=== PATIENT | male | born 1955 | race Caucasian/White ===

== ENCOUNTER 2017-07-05 21:54 | Inpatient (IN) | payer MEDICAID ==
[~2017-07-05] VITALS: Ht 182.9 cm; Wt 90.0 kg
[~2017-07-05 21:54] MED LIST: GABA-531 PO; METF500T4 PO
[2017-07-05 22:59] LABS: BASOPHILS % (AUTO) 0.3 % (0.0-2.0); EOSINOPHILS % (AUTO) 0.9 % (1.0-6.0); HEMATOCRIT 37.6 % (41-53); HEMOGLOBIN 12.4 g/dL (13.5-17.5); LYMPHOCYTES % (AUTO) 24.8 % (22.0-44.0); MEAN CORPUSCULAR HEMOGLOBIN 28.4 pg (26.0-34.0); MEAN CORPUSCULAR VOLUME 86 fL (80-100); MONOCYTES # (AUTO) 0.7 K/uL (0.1-1.0); MONOCYTES % (AUTO) 8.2 % (2.0-9.0); NEUTROPHILS # (AUTO) 5.4 K/uL (1.8-7.7); NEUTROPHILS % (AUTO) 65.8 % (40.0-70.0); PLATELET COUNT (AUTO) 369 K/uL (150-450); RED BLOOD CELL COUNT(AUTO) 4.38 MIL/uL (4.50-5.90); WHITE BLOOD COUNT (AUTO) 8.2 K/uL (4.5-11.0)
[2017-07-05 23:06] LABS: ANION GAP 9 mmol/L (8-16); CALCIUM, TOTAL 8.7 mg/dL (8.8-10.5); CARBON DIOXIDE 28 mmol/L (22-29); CHLORIDE 101 mmol/L (98-107); CREATININE 0.66 mg/dL (0.60-1.30); GLOMERULAR FILTR. RATE CALC > 60 mL/min (>60); POTASSIUM 3.6 mmol/L (3.5-5.1); SODIUM SERUM 138 mmol/L (136-145); UREA NITROGEN, BLOOD 20 mg/dL (7-18)
[2017-07-05 23:09] LABS: AMMONIA < 10 umol/L (11-32); TROPONIN I < 0.02 ng/mL (0.00-0.05)
[2017-07-05 23:10] LABS: ALANINE AMINOTRANSFERASE 33 U/L (12-78); ALBUMIN 3.2 g/dL (3.4-5.0); ASPARTATE AMINOTRANSFERASE 34 U/L (15-37); BILIRUBIN,TOTAL 0.2 mg/dL (0.1-1.0); TOTAL PROTEIN, SERUM 7.5 g/dL (6.4-8.2)
[2017-07-05 23:16] LABS: RBC MORPHOLOGY COMMENT ABNORMAL RBC MORPH
[2017-07-06] VITALS (11 sets, daily range): BP systolic 120–153; BP diastolic 67–94
[2017-07-06] MEDS ORDERED: CEPHALEXIN MONOHYDRATE 500 MG CAPSULE PO ONE ×2 (01:30→09:00)
[2017-07-06] MEDS ORDERED: HALOPERIDOL 5 MG TABLET PO PRN (01:45)
[2017-07-06] MEDS ORDERED: ZOLPIDEM TARTRATE 10 MG TABLET PO PRN (01:45)
[2017-07-06] MEDS: LORazepam 2 MG TABLET PO PRN ×2 (01:51→09:56)
[2017-07-06] MEDS ORDERED: INFLUENZA VIRUS VACCINE QVS 2017-18 (3YR+)/PF 60 MCG/0.5 ML SYRINGE IM ONE (03:00)
[2017-07-06] MEDS ORDERED: ACETAMINOPHEN 325 MG TABLET PO PRN (07:45)
[2017-07-06] MEDS ORDERED: GuaiFENesin/D-METHORPHAN [SUGAR-FREE] 200-20MG/10 ML SYRUP UDCUP PO PRN (08:45)
[2017-07-06] MEDS ORDERED: CYANOCOBALAMIN 1,000 MCG/ML VIAL IM ONE (08:45)
[2017-07-06] MEDS: MULTIVITAMINS WITH MINERALS, THERAPEUTIC TABLET PO SCH (09:53)
[2017-07-06] MEDS: CEPHALEXIN MONOHYDRATE 500 MG CAPSULE PO SCH ×4 (09:53→21:25)
[2017-07-06] MEDS: THIAMINE HCL 100 MG TABLET PO SCH ×2 (09:53→17:03)
[2017-07-06] MEDS: FOLIC ACID 1 MG TABLET PO SCH (09:53)
[2017-07-06 11:01] LABS: APPEARANCE,URINE CLEAR (CLEAR); GLUCOSE, URINE (UA) NEGATIVE (NEGATIVE); KETONES,URINE NEGATIVE (NEGATIVE); LEUKOCYTE ESTERASE ,URINE NEGATIVE (NEGATIVE); OCCULT BLOOD,URINE NEGATIVE (NEGATIVE); PH,URINE 5.5 (5.0-8.0); PROTEIN,URINE TRACE (NEGATIVE)
[2017-07-06 11:02] LABS: ADD UA MICROSCOPIC NO
[2017-07-06] MEDS ORDERED: IBUPROFEN 400 MG TABLET PO PRN (11:30)
[2017-07-06] MEDS: LOPERAMIDE HCL 2 MG CAPSULE PO PRN (15:38)
[2017-07-07] VITALS (11 sets, daily range): BP systolic 120–162; BP diastolic 75–94
[2017-07-07] MEDS: LOPERAMIDE HCL 2 MG CAPSULE PO PRN (03:36)
[2017-07-07] MEDS: IBUPROFEN 400 MG TABLET PO PRN ×2 (03:36→18:50)
[2017-07-07] MEDS ORDERED: LORazepam 2 MG TABLET PO PRN (07:00)
[2017-07-07 07:06] LABS: CHOL/HDL RATIO 2.9 (4.2-7.3)
[2017-07-07] MEDS: MULTIVITAMINS WITH MINERALS, THERAPEUTIC TABLET PO SCH (08:46)
[2017-07-07] MEDS: CEPHALEXIN MONOHYDRATE 500 MG CAPSULE PO SCH ×4 (08:46→21:02)
[2017-07-07] MEDS: THIAMINE HCL 100 MG TABLET PO SCH ×2 (08:46→16:46)
[2017-07-07] MEDS: FOLIC ACID 1 MG TABLET PO SCH (08:47)
[2017-07-07] MEDS: LORazepam 2 MG TABLET PO SCH ×4 (08:47→21:01)
[2017-07-07] MEDS: ACETAMINOPHEN 325 MG TABLET PO PRN (08:51)
[2017-07-08 03:47] VITALS: BP 142/87
[2017-07-08] MEDS: IBUPROFEN 400 MG TABLET PO PRN ×2 (03:53→16:13)
[2017-07-08] MEDS: LOPERAMIDE HCL 2 MG CAPSULE PO PRN (06:00)
[2017-07-08 08:00] VITALS: BP 143/96
[2017-07-08] MEDS: LORazepam 2 MG TABLET PO SCH ×4 (08:09→21:24)
[2017-07-08] MEDS: MULTIVITAMINS WITH MINERALS, THERAPEUTIC TABLET PO SCH (08:09)
[2017-07-08] MEDS: FOLIC ACID 1 MG TABLET PO SCH (08:09)
[2017-07-08] MEDS: THIAMINE HCL 100 MG TABLET PO SCH ×2 (08:09→16:14)
[2017-07-08] MEDS: CEPHALEXIN MONOHYDRATE 500 MG CAPSULE PO SCH ×4 (08:09→21:24)
[2017-07-08] MEDS: ACETAMINOPHEN 325 MG TABLET PO PRN (08:10)
[2017-07-08] MEDS: SERTRALINE HCL 50 MG TABLET PO SCH (12:29)
[2017-07-08 16:10] VITALS: BP 152/86
[2017-07-08 16:34] VITALS: BP 150/87
[2017-07-09 04:00] VITALS: BP 132/87
[2017-07-09] MEDS: IBUPROFEN 400 MG TABLET PO PRN (04:38)
[2017-07-09] MEDS: ACETAMINOPHEN 325 MG TABLET PO PRN ×2 (05:41→09:50)
[2017-07-09] MEDS ORDERED: LORazepam 1 MG TABLET PO PRN (07:00)
[2017-07-09] MEDS: CEPHALEXIN MONOHYDRATE 500 MG CAPSULE PO SCH ×4 (08:53→21:13)
[2017-07-09] MEDS: LORazepam 1 MG TABLET PO SCH ×4 (08:53→21:13)
[2017-07-09] MEDS: SERTRALINE HCL 50 MG TABLET PO SCH (08:53)
[2017-07-09] MEDS: MULTIVITAMINS WITH MINERALS, THERAPEUTIC TABLET PO SCH (08:53)
[2017-07-09] MEDS: THIAMINE HCL 100 MG TABLET PO SCH ×2 (08:53→16:28)
[2017-07-09] MEDS: FOLIC ACID 1 MG TABLET PO SCH (08:53)
[2017-07-09 09:30] VITALS: BP 155/99
[2017-07-09] MEDS: LOPERAMIDE HCL 2 MG CAPSULE PO PRN (09:50)
[2017-07-09 16:30] VITALS: BP 131/91
[2017-07-10] MEDS: IBUPROFEN 400 MG TABLET PO PRN ×2 (01:20→12:50)
[2017-07-10 01:27] VITALS: BP 147/90
[2017-07-10 01:29] VITALS: BP 147/90
[2017-07-10 07:00] VITALS: BP 149/96
[2017-07-10] MEDS: ACETAMINOPHEN 325 MG TABLET PO PRN ×2 (07:04→16:40)
[2017-07-10 08:04] VITALS: BP 149/88
[2017-07-10] MEDS: MULTIVITAMINS WITH MINERALS, THERAPEUTIC TABLET PO SCH (09:00)
[2017-07-10] MEDS: CEPHALEXIN MONOHYDRATE 500 MG CAPSULE PO SCH ×4 (09:00→20:13)
[2017-07-10] MEDS: SERTRALINE HCL 50 MG TABLET PO SCH (09:00)
[2017-07-10] MEDS: LORazepam 1 MG TABLET PO PRN ×2 (09:00→14:39)
[2017-07-10] MEDS: LOPERAMIDE HCL 2 MG CAPSULE PO PRN (09:00)
[2017-07-10] MEDS: THIAMINE HCL 100 MG TABLET PO SCH ×2 (09:00→16:40)
[2017-07-10] MEDS: FOLIC ACID 1 MG TABLET PO SCH (09:00)
[2017-07-10 16:42] VITALS: BP 136/71
[2017-07-11] VITALS: BP 146/80
[2017-07-11] MEDS: IBUPROFEN 400 MG TABLET PO PRN ×2 (00:07→10:07)
[2017-07-11 05:30] VITALS: BP 145/115
[2017-07-11] MEDS: ACETAMINOPHEN 325 MG TABLET PO PRN (05:39)
[2017-07-11] MEDS: LORazepam 1 MG TABLET PO PRN (05:39)
[2017-07-11] MEDS ORDERED: AmLODIPine BESYLATE 5 MG TABLET PO SCH (09:00)
[2017-07-11] MEDS: MULTIVITAMINS WITH MINERALS, THERAPEUTIC TABLET PO SCH (09:11)
[2017-07-11] MEDS: FOLIC ACID 1 MG TABLET PO SCH (09:11)
[2017-07-11] MEDS: THIAMINE HCL 100 MG TABLET PO SCH (09:11)
[2017-07-11] MEDS: SERTRALINE HCL 50 MG TABLET PO SCH (09:11)
[2017-07-11] MEDS: CEPHALEXIN MONOHYDRATE 500 MG CAPSULE PO SCH ×2 (09:11→12:49)
[2017-07-11 10:07] VITALS: BP 146/93
[2017-07-11] MEDS ORDERED: SERT50TA12 PO (10:07)
[2017-07-11] MEDS ORDERED: FOLI1 PO (10:08)
[2017-07-11] MEDS ORDERED: AMLO-511 PO (10:08)
[2017-07-11] MEDS ORDERED: MULT-723 PO (10:11)
[2017-07-11] MEDS ORDERED: THIA100 PO (10:12)
[2017-07-11] MEDS ORDERED: CEPH500 PO (10:12)
[2017-07-11] MEDS: LOPERAMIDE HCL 2 MG CAPSULE PO PRN (10:48)
[2017-07-11 11:47] VITALS: BP 140/88
== END 2017-07-11 13:40 | disposition home or self-care (01) | DRG 751 ==
LOC: EDBD 21:56 → EMS 21:56 → 3EI 07-06 01:00
PROC: HZ2ZZZZ Detoxification Services for Substance Abuse Treatment (ICD-10-PCS; principal; 2017-07-07)
DX: F33.2 Major depressive disorder, recurrent severe without psychotic features (principal); R45.851 Suicidal ideations; L03.116 Cellulitis of left lower limb; E88.09 Other disorders of plasma-protein metabolism, not elsewhere classified; D64.9 Anemia, unspecified; T14.8XXA Other injury of unspecified body region, initial encounter; F10.229 Alcohol dependence with intoxication, unspecified; Y90.6 Blood alcohol level of 120-199 mg/100 ml; X58.XXXA Exposure to other specified factors, initial encounter; F19.10 Other psychoactive substance abuse, uncomplicated; Z59.0 Homelessness; Y92.89 Other specified places as the place of occurrence of the external cause; Y93.89 Activity, other specified
CPT/HCPCS: 80307; 99285; G0480; J3420

== ENCOUNTER 2017-12-03 20:25 | Emergency (ER) | payer MEDICAID, OTHER ==
[~2017-12-03] VITALS: Ht 182.9 cm; Wt 100.0 kg
[~2017-12-03 20:25] MED LIST changes: +AMLO-511 PO; +CEPH500 PO; +FOLI1 PO; +MULT-723 PO; +SERT50TA12 PO; +THIA100 PO
[2017-12-03 20:29] VITALS: BP 150/85
[2017-12-03] MEDS ORDERED: MIRALAX PO (20:40)
[2017-12-03] MEDS ORDERED: METO25 PO (20:40)
[2017-12-03] MEDS ORDERED: HYDR25TA PO (20:40)
[2017-12-03] MEDS ORDERED: LIDO700A30 TP (20:40)
[2017-12-03] MEDS ORDERED: VORT20TA PO (20:40)
[2017-12-03] MEDS ORDERED: TAMS0.4C32 PO (20:40)
[2017-12-03] MEDS ORDERED: DOCU250C91 PO (20:40)
[2017-12-03] MEDS ORDERED: OS500 PO (20:40)
[2017-12-03] MEDS ORDERED: ENAL20 PO (20:40)
[2017-12-03] MEDS ORDERED: HYDR-309 PO (20:40)
[2017-12-03] MEDS ORDERED: SENN-175 PO (20:40)
== END 2017-12-03 21:24 | disposition left against medical advice (07) ==
LOC: EMS 20:25
DX: S16.1XXA Strain of muscle, fascia and tendon at neck level, initial encounter (principal); R10.31 Right lower quadrant pain; E11.9 Type 2 diabetes mellitus without complications; M79.641 Pain in right hand; F32.9 Major depressive disorder, single episode, unspecified; I10 Essential (primary) hypertension; Z59.0 Homelessness; Z79.899 Other long term (current) drug therapy; W18.39XA Other fall on same level, initial encounter; Y93.89 Activity, other specified; Y92.89 Other specified places as the place of occurrence of the external cause; Y99.8 Other external cause status
CPT/HCPCS: 99283

== ENCOUNTER 2017-12-04 09:13 | Emergency (ER) | payer OTHER ==
[~2017-12-04] VITALS: Ht 185.4 cm; Wt 100.0 kg
[~2017-12-04 09:13] MED LIST changes: -AMLO-511 PO; +DOCU250C91 PO; +ENAL20 PO; -FOLI1 PO; +HYDR-309 PO; +HYDR25TA PO; +LIDO700A30 TP; +METO25 PO; +MIRALAX PO; +OS500 PO; +SENN-175 PO; +TAMS0.4C32 PO; +VORT20TA PO
[2017-12-04] MEDS ORDERED: SODIUM CHLORIDE 0.9% 1,000 ML IV ONE (12:30)
[2017-12-04] MEDS ORDERED: HYDROCODONE/ACETAMINOPHEN 5-325 MG TABLET PO ONE (12:30)
[2017-12-04 12:48] LABS: BASOPHILS % (AUTO) 0.5 % (0.0-2.0); HEMATOCRIT 31.6 % (41-53); HEMOGLOBIN 10.3 g/dL (13.5-17.5); LYMPHOCYTES # (AUTO) 2.3 K/uL (1.0-4.8); MEAN CORPUSCULAR HEMOGLOBIN 26.2 pg (26.0-34.0); MEAN CORPUSCULAR HGB CONC 32.8 G/dL (31.0-37.0); MEAN CORPUSCULAR VOLUME 80 fL (80-100); MONOCYTES # (AUTO) 0.8 K/uL (0.1-1.0); MONOCYTES % (AUTO) 8.7 % (2.0-9.0); NEUTROPHILS % (AUTO) 64.8 % (40.0-70.0); PLATELET COUNT (AUTO) 410 K/uL (150-450); RED BLOOD CELL COUNT(AUTO) 3.95 MIL/uL (4.50-5.90); RED CELL DISTRIBUTION WIDTH 18.3 % (11.5-14.5)
[2017-12-04 12:50] VITALS: BP 128/89
[2017-12-04 12:58] LABS: ANION GAP 10 mmol/L (8-16); CALCIUM, TOTAL 8.6 mg/dL (8.8-10.5); CARBON DIOXIDE 27 mmol/L (22-29); CHLORIDE 96 mmol/L (98-107); CREATININE 0.65 mg/dL (0.60-1.30); GLOMERULAR FILTR. RATE CALC > 60 mL/min (>60); GLUCOSE,RANDOM 105 mg/dL (70-110); POTASSIUM 3.6 mmol/L (3.5-5.1); SODIUM SERUM 133 mmol/L (136-145); UREA NITROGEN, BLOOD 14 mg/dL (7-18)
[2017-12-04 13:11] LABS: ALANINE AMINOTRANSFERASE 32 U/L (12-78); ALBUMIN 2.9 g/dL (3.4-5.0); ALKALINE PHOSPHATASE 106 U/L (46-116); ASPARTATE AMINOTRANSFERASE 25 U/L (15-37); BILIRUBIN,TOTAL 0.2 mg/dL (0.1-1.0); TOTAL PROTEIN, SERUM 8.1 g/dL (6.4-8.2)
== END 2017-12-04 13:26 | disposition home or self-care (01) ==
LOC: EMS 09:15
DX: R10.9 Unspecified abdominal pain (principal); E11.9 Type 2 diabetes mellitus without complications; I10 Essential (primary) hypertension; Z59.0 Homelessness; Z98.890 Other specified postprocedural states
CPT/HCPCS: 36415; 80053; 85025; 99284; J7030

== ENCOUNTER 2018-07-23 12:41 | Emergency (ER) | payer OTHER ==
[~2018-07-23] VITALS: Ht 175.3 cm; Wt 90.9 kg
[~2018-07-23 12:41] MED LIST changes: +METF-960 PO; -METF500T4 PO; -SENN-175 PO; +SENN-176 PO; -THIA100 PO; +THIA100T67 PO
[2018-07-23 13:09] VITALS: BP 131/76
[2018-07-23 13:13] LABS: GLUCOSE,POINT OF CARE 74 MG/DL (70-110)
== END 2018-07-23 14:04 | disposition left against medical advice (07) ==
LOC: EMS 12:42
DX: F10.129 Alcohol abuse with intoxication, unspecified (principal); E11.9 Type 2 diabetes mellitus without complications; I10 Essential (primary) hypertension; Z59.0 Homelessness; Z79.84 Long term (current) use of oral hypoglycemic drugs

== ENCOUNTER 2019-03-14 15:35 | Emergency (ER) | payer OTHER ==
[~2019-03-14] VITALS: Ht 182.9 cm; Wt 106.6 kg
[2019-03-14 16:10] LABS: BASOPHILS % (AUTO) 0.7 % (0.0-2.0); HEMATOCRIT 39.6 % (41-53); HEMOGLOBIN 12.4 g/dL (13.5-17.5); LYMPHOCYTES # (AUTO) 2.8 K/uL (1.0-4.8); LYMPHOCYTES % (AUTO) 25.5 % (22.0-44.0); MEAN CORPUSCULAR HEMOGLOBIN 27.5 pg (26.0-34.0); MEAN CORPUSCULAR HGB CONC 31.3 G/dL (31.0-37.0); MEAN CORPUSCULAR VOLUME 88 fL (80-100); MONOCYTES # (AUTO) 1.1 K/uL (0.1-1.0); MONOCYTES % (AUTO) 10.1 % (2.0-9.0); NEUTROPHILS % (AUTO) 62.7 % (40.0-70.0); PLATELET COUNT (AUTO) 291 K/uL (150-450); RED BLOOD CELL COUNT(AUTO) 4.51 MIL/uL (4.50-5.90); RED CELL DISTRIBUTION WIDTH 22.7 % (11.5-14.5)
[2019-03-14 16:21] LABS: ANION GAP 11 mmol/L (8-16); CALCIUM, TOTAL 8.3 mg/dL (8.8-10.5); CARBON DIOXIDE 22 mmol/L (22-29); CHLORIDE 100 mmol/L (98-107); CREATININE 1.17 mg/dL (0.60-1.30); GLOMERULAR FILTR. RATE CALC > 60 mL/min (>60); GLUCOSE,RANDOM 109 mg/dL (70-110); POTASSIUM 4.3 mmol/L (3.5-5.1); SODIUM SERUM 133 mmol/L (136-145); UREA NITROGEN, BLOOD 26 mg/dL (7-18)
[2019-03-14 16:26] LABS: PROTHROMBIN TIME 10.7 SEC (9.4-11.6)
[2019-03-14 16:30] LABS: B-TYPE NATRIURETIC PEPTIDE 218 pg/mL (0-100)
[2019-03-14] MEDS ORDERED: SODIUM CHLORIDE 0.9% 1,000 ML IV ONE (16:30)
[2019-03-14] MEDS ORDERED: IOVERSOL 350 MG/ML 150 ML VIAL ONE (16:39)
[2019-03-14] MEDS ORDERED: SODIUM CHLORIDE 0.9% 0 ML ONE (16:39)
[2019-03-14 16:47] LABS: ALANINE AMINOTRANSFERASE 33 U/L (12-78); ALBUMIN 3.1 g/dL (3.4-5.0); ALKALINE PHOSPHATASE 75 U/L (46-116); ASPARTATE AMINOTRANSFERASE 23 U/L (15-37); BILIRUBIN,TOTAL 0.2 mg/dL (0.1-1.0); CREATINE KINASE, TOTAL ONLY 196 U/L (39-308); TOTAL PROTEIN, SERUM 6.7 g/dL (6.4-8.2)
[2019-03-14 17:25] VITALS: BP 102/65
== END 2019-03-14 17:40 | disposition left against medical advice (07) ==
LOC: EMS 15:38
DX: R07.9 Chest pain, unspecified (principal); R06.02 Shortness of breath; I48.91 Unspecified atrial fibrillation; E11.9 Type 2 diabetes mellitus without complications; I10 Essential (primary) hypertension; F17.210 Nicotine dependence, cigarettes, uncomplicated; Z59.0 Homelessness; Z79.84 Long term (current) use of oral hypoglycemic drugs
CPT/HCPCS: 71045; 80053; 82550; 83880; 84484; 85025; 85610; 85730; 93005; 99285; J7030; J7050

== ENCOUNTER 2019-03-15 03:27 | Emergency (ER) | payer OTHER ==
[~2019-03-15] VITALS: Ht 182.9 cm; Wt 102.3 kg
[2019-03-15] MEDS ORDERED: KETOROLAC TROMETHAMINE 30 MG/ML VIAL IVP ONE (04:00)
[2019-03-15] MEDS ORDERED: MORPHINE SULFATE 4 MG/ML SYRINGE IVP ONE (04:15)
[2019-03-15] MEDS ORDERED: ONDANSETRON HCL 4 MG/2 ML VIAL IVP ONE (04:15)
[2019-03-15 04:26] LABS: EOSINOPHILS % (AUTO) 0.7 % (1.0-6.0); HEMATOCRIT 41.5 % (41-53); LYMPHOCYTES # (AUTO) 2.6 K/uL (1.0-4.8); LYMPHOCYTES % (AUTO) 19.6 % (22.0-44.0); MEAN CORPUSCULAR HEMOGLOBIN 27.4 pg (26.0-34.0); MEAN CORPUSCULAR HGB CONC 31.5 G/dL (31.0-37.0); MEAN CORPUSCULAR VOLUME 87 fL (80-100); MONOCYTES # (AUTO) 1.1 K/uL (0.1-1.0); MONOCYTES % (AUTO) 8.4 % (2.0-9.0); NEUTROPHILS # (AUTO) 9.3 K/uL (1.8-7.7); NEUTROPHILS % (AUTO) 70.3 % (40.0-70.0); PLATELET COUNT (AUTO) 268 K/uL (150-450); RED BLOOD CELL COUNT(AUTO) 4.76 MIL/uL (4.50-5.90); RED CELL DISTRIBUTION WIDTH 22.6 % (11.5-14.5)
[2019-03-15 04:39] LABS: PROTHROMBIN TIME 10.5 SEC (9.4-11.6)
[2019-03-15 04:43] LABS: ANION GAP 8 mmol/L (8-16); CALCIUM, TOTAL 8.6 mg/dL (8.8-10.5); CARBON DIOXIDE 27 mmol/L (22-29); CHLORIDE 102 mmol/L (98-107); GLOMERULAR FILTR. RATE CALC > 60 mL/min (>60); GLUCOSE,RANDOM 102 mg/dL (70-110); POTASSIUM 5.1 mmol/L (3.5-5.1); SODIUM SERUM 137 mmol/L (136-145); UREA NITROGEN, BLOOD 25 mg/dL (7-18)
[2019-03-15 04:48] LABS: ALANINE AMINOTRANSFERASE 41 U/L (12-78); ALBUMIN 3.4 g/dL (3.4-5.0); ALKALINE PHOSPHATASE 88 U/L (46-116); ASPARTATE AMINOTRANSFERASE 29 U/L (15-37); BILIRUBIN,TOTAL 0.2 mg/dL (0.1-1.0); TOTAL PROTEIN, SERUM 7.2 g/dL (6.4-8.2)
[2019-03-15 05:17] LABS: APPEARANCE,URINE CLEAR (CLEAR); BILIRUBIN,URINE NEGATIVE (NEGATIVE); GLUCOSE, URINE (UA) NEGATIVE (NEGATIVE); KETONES,URINE NEGATIVE (NEGATIVE); LEUKOCYTE ESTERASE ,URINE NEGATIVE (NEGATIVE); NITRATE,URINE NEGATIVE (NEGATIVE); OCCULT BLOOD,URINE NEGATIVE (NEGATIVE); PROTEIN,URINE NEGATIVE (NEGATIVE); UROBILINOGEN,URINE 0.2 mg/dL (<=1.0)
[2019-03-15 06:32] VITALS: BP 124/85
[2019-03-15 06:33] LABS: AMPHET/METH SCREEN,URINE NEGATIVE (NEGATIVE); BARBITURATE SCREEN, URINE NEGATIVE (NEGATIVE); BENZODIAZEPINES SCREEN,URINE NEGATIVE (NEGATIVE); CANNABINOID SCREEN,URINE NEGATIVE (NEGATIVE); COCAINE SCREEN,URINE NEGATIVE (NEGATIVE); METHADONE SCREEN, URINE NEGATIVE (NEGATIVE); OPIATE SCREEN,URINE NEGATIVE (NEGATIVE)
[2019-03-15 06:37] LABS: PHENCYCLIDINE SCREEN,URINE NEGATIVE (NEGATIVE)
== END 2019-03-15 06:33 | disposition home or self-care (01) ==
LOC: EMS 03:29
DX: M54.6 Pain in thoracic spine (principal); M54.2 Cervicalgia; M54.5 Low back pain; I48.91 Unspecified atrial fibrillation; E11.9 Type 2 diabetes mellitus without complications; I10 Essential (primary) hypertension; F17.210 Nicotine dependence, cigarettes, uncomplicated; Z59.0 Homelessness; Z79.84 Long term (current) use of oral hypoglycemic drugs
CPT/HCPCS: 36415; 70450; 72125; 72128; 72131; 72192; 80053; 80307; 81003; 85025; 85610; 85730; 96374; 96375; 99284; J1885; J2270; J2405; 51701

== ENCOUNTER 2019-03-30 02:00 | Emergency (ER) | payer OTHER ==
[~2019-03-30] VITALS: Ht 188 cm; Wt 102.3 kg
[2019-03-30 03:00] VITALS: BP 115/60
[2019-03-30 03:15] LABS: BASOPHILS % (AUTO) 0.7 % (0.0-2.0); EOSINOPHILS % (AUTO) 1.8 % (1.0-6.0); HEMATOCRIT 35.3 % (41-53); HEMOGLOBIN 11.1 g/dL (13.5-17.5); LYMPHOCYTES # (AUTO) 1.7 K/uL (1.0-4.8); LYMPHOCYTES % (AUTO) 21.2 % (22.0-44.0); MEAN CORPUSCULAR HEMOGLOBIN 27.3 pg (26.0-34.0); MEAN CORPUSCULAR HGB CONC 31.6 G/dL (31.0-37.0); MEAN CORPUSCULAR VOLUME 87 fL (80-100); MONOCYTES # (AUTO) 0.8 K/uL (0.1-1.0); MONOCYTES % (AUTO) 9.9 % (2.0-9.0); NEUTROPHILS # (AUTO) 5.3 K/uL (1.8-7.7); NEUTROPHILS % (AUTO) 66.4 % (40.0-70.0); PLATELET COUNT (AUTO) 239 K/uL (150-450); RED BLOOD CELL COUNT(AUTO) 4.08 MIL/uL (4.50-5.90); RED CELL DISTRIBUTION WIDTH 21.9 % (11.5-14.5)
[2019-03-30 03:24] LABS: ANION GAP 14 mmol/L (8-16); CALCIUM, TOTAL 8.9 mg/dL (8.8-10.5); CARBON DIOXIDE 25 mmol/L (22-29); CHLORIDE 103 mmol/L (98-107); CREATININE 0.83 mg/dL (0.60-1.30); GLOMERULAR FILTR. RATE CALC > 60 mL/min (>60); GLUCOSE,RANDOM 95 mg/dL (70-110); POTASSIUM 3.9 mmol/L (3.5-5.1); SODIUM SERUM 142 mmol/L (136-145); UREA NITROGEN, BLOOD 15 mg/dL (7-18)
[2019-03-30 03:30] LABS: ALANINE AMINOTRANSFERASE 34 U/L (12-78); ALBUMIN 3.6 g/dL (3.4-5.0); ALKALINE PHOSPHATASE 78 U/L (46-116); ASPARTATE AMINOTRANSFERASE 64 U/L (15-37); BILIRUBIN,TOTAL 0.7 mg/dL (0.1-1.0); TOTAL PROTEIN, SERUM 7.1 g/dL (6.4-8.2)
== END 2019-03-30 06:35 | disposition home or self-care (01) ==
LOC: EMS 02:02
DX: R07.9 Chest pain, unspecified (principal); M79.604 Pain in right leg; M79.605 Pain in left leg; F17.210 Nicotine dependence, cigarettes, uncomplicated; I48.91 Unspecified atrial fibrillation; E11.9 Type 2 diabetes mellitus without complications; I10 Essential (primary) hypertension; Z59.0 Homelessness
CPT/HCPCS: 93005; 99406

== ENCOUNTER 2019-10-15 01:37 | Inpatient (IN) | payer MEDICAID, OTHER ==
[2019-10-15] VITALS (7 sets, daily range): BP systolic 136–163; BP diastolic 56–97
[~2019-10-15] VITALS: Ht 177.8 cm; Wt 108.6 kg
[2019-10-15] MEDS ORDERED: HALOPERIDOL LACTATE 5 MG/ML VIAL IM ONE (02:15)
[2019-10-15] MEDS ORDERED: LORazepam 2 MG/ML VIAL IM ONE (02:15)
[2019-10-15 02:41] LABS: BASOPHILS % (AUTO) 0.2 % (0.0-2.0); EOSINOPHILS % (AUTO) 1.7 % (1.0-6.0); HEMATOCRIT 47.3 % (41-53); HEMOGLOBIN 15.3 g/dL (13.5-17.5); LYMPHOCYTES # (AUTO) 2.1 K/uL (1.0-4.8); LYMPHOCYTES % (AUTO) 37.5 % (22.0-44.0); MEAN CORPUSCULAR HEMOGLOBIN 28.8 pg (26.0-34.0); MEAN CORPUSCULAR HGB CONC 32.4 G/dL (31.0-37.0); MEAN CORPUSCULAR VOLUME 89 fL (80-100); MONOCYTES # (AUTO) 0.5 K/uL (0.1-1.0); MONOCYTES % (AUTO) 8.1 % (2.0-9.0); NEUTROPHILS % (AUTO) 52.5 % (40.0-70.0); PLATELET COUNT (AUTO) 250 K/uL (150-450); RED BLOOD CELL COUNT(AUTO) 5.32 MIL/uL (4.50-5.90); RED CELL DISTRIBUTION WIDTH 17.9 % (11.5-14.5)
[2019-10-15 02:43] LABS: ANION GAP 5 mmol/L (8-16); CALCIUM, TOTAL 8.8 mg/dL (8.8-10.5); CARBON DIOXIDE 32 mmol/L (22-29); CHLORIDE 101 mmol/L (98-107); CREATININE 0.75 mg/dL (0.60-1.30); GLOMERULAR FILTR. RATE CALC > 60 mL/min (>60); GLUCOSE,RANDOM 100 mg/dL (70-110); POTASSIUM 3.9 mmol/L (3.5-5.1); SODIUM SERUM 138 mmol/L (136-145); UREA NITROGEN, BLOOD 9 mg/dL (7-18)
[2019-10-15 02:48] LABS: ALANINE AMINOTRANSFERASE 55 U/L (12-78); ALBUMIN 4.1 g/dL (3.4-5.0); ALKALINE PHOSPHATASE 114 U/L (46-116); ASPARTATE AMINOTRANSFERASE 55 U/L (15-37); BILIRUBIN,TOTAL 0.3 mg/dL (0.1-1.0); TOTAL PROTEIN, SERUM 8.2 g/dL (6.4-8.2)
[2019-10-15 02:51] LABS: AMPHET/METH SCREEN,URINE NEGATIVE (NEGATIVE); BARBITURATE SCREEN, URINE NEGATIVE (NEGATIVE); BENZODIAZEPINES SCREEN,URINE NEGATIVE (NEGATIVE); CANNABINOID SCREEN,URINE NEGATIVE (NEGATIVE); COCAINE SCREEN,URINE NEGATIVE (NEGATIVE); METHADONE SCREEN, URINE NEGATIVE (NEGATIVE); OPIATE SCREEN,URINE NEGATIVE (NEGATIVE)
[2019-10-15 02:52] LABS: PHENCYCLIDINE SCREEN,URINE NEGATIVE (NEGATIVE)
[2019-10-15] MEDS ORDERED: LORazepam 2 MG TABLET PO PRN (03:00)
[2019-10-15] MEDS ORDERED: INFLUENZA VIRUS VACCINE QVS 2019-20 (3YR+)/PF 60 MCG/0.5 ML SYRINGE IM ONE (05:30)
[2019-10-15] MEDS ORDERED: PNEUMOCOCCAL VACCINE POLYVALENT 0.5 ML VIAL [PPSV23] IM ONE (05:30)
[2019-10-15] MEDS ORDERED: AmLODIPine BESYLATE 5 MG TABLET PO ONE (06:15)
[2019-10-15] MEDS ORDERED: LOPERAMIDE HCL 2 MG CAPSULE PO PRN (13:00)
[2019-10-15] MEDS ORDERED: MAGNESIUM HYDROXIDE SUSPENSION 30 ML UDCUP PO PRN (13:00)
[2019-10-15] MEDS ORDERED: CloNIDine HCL 0.1 MG TABLET PO PRN (13:00)
[2019-10-15] MEDS ORDERED: MAG HYDROX/AL HYDROX/SIMETH ES 30 ML SUSPENSION UDCUP PO PRN (13:00)
[2019-10-15] MEDS ORDERED: PETROLATUM,WHITE 28 GM JELLY TP PRN (13:00)
[2019-10-15] MEDS ORDERED: ONDANSETRON HCL 4 MG TABLET PO PRN (13:00)
[2019-10-15] MEDS ORDERED: NICOTINE 14 MG/24 HOUR PATCH TD PRN (13:00)
[2019-10-15] MEDS ORDERED: DOCUSATE SODIUM 100 MG CAPSULE PO PRN (13:00)
[2019-10-15] MEDS ORDERED: ALBUTEROL SULFATE HFA 90 MCG/PUFF 8 GM INHALER IH PRN (13:00)
[2019-10-15] MEDS ORDERED: GuaiFENesin/D-METHORPHAN [SUGAR-FREE] 200-20MG/10 ML SYRUP UDCUP PO PRN (13:00)
[2019-10-15] MEDS ORDERED: CYANOCOBALAMIN 1,000 MCG/ML VIAL IM ONE (14:15)
[2019-10-15] MEDS: MULTIVITAMINS WITH MINERALS, THERAPEUTIC TABLET PO SCH (14:22)
[2019-10-15] MEDS: FOLIC ACID 1 MG TABLET PO SCH (14:22)
[2019-10-15] MEDS: DIAZEPAM 10 MG TABLET PO PRN ×2 (14:22→22:27)
[2019-10-15] MEDS: THIAMINE HCL 100 MG TABLET PO SCH (16:31)
[2019-10-16 07:00] LABS: HEMOGLOBIN A1C 5.4 % (3.8-5.6)
[2019-10-16] MEDS ORDERED: DIAZEPAM 10 MG TABLET PO PRN (07:00)
[2019-10-16 07:09] LABS: CHOL/HDL RATIO 2.8 (4.2-7.3)
[2019-10-16] MEDS: DIAZEPAM 10 MG TABLET PO SCH ×4 (07:40→20:36)
[2019-10-16] MEDS: AmLODIPine BESYLATE 5 MG TABLET PO SCH (07:40)
[2019-10-16] MEDS: MULTIVITAMINS WITH MINERALS, THERAPEUTIC TABLET PO SCH (07:40)
[2019-10-16] MEDS: THIAMINE HCL 100 MG TABLET PO SCH ×2 (07:40→16:25)
[2019-10-16] MEDS: FOLIC ACID 1 MG TABLET PO SCH (07:41)
[2019-10-16 08:40] VITALS: BP 162/100
[2019-10-16 08:41] VITALS: BP 160/87
[2019-10-16 10:47] VITALS: BP 164/101
[2019-10-16] MEDS: IBUPROFEN 400 MG TABLET PO PRN ×2 (14:09→23:16)
[2019-10-16 14:15] VITALS: BP 162/75
[2019-10-16 16:30] VITALS: BP 146/87
[2019-10-16] MEDS: ACETAMINOPHEN 325 MG TABLET PO PRN (18:05)
[2019-10-17 08:20] VITALS: BP 136/80
[2019-10-17] MEDS: ACETAMINOPHEN 325 MG TABLET PO PRN (08:28)
[2019-10-17] MEDS: AmLODIPine BESYLATE 5 MG TABLET PO SCH (08:29)
[2019-10-17] MEDS: THIAMINE HCL 100 MG TABLET PO SCH ×2 (08:29→16:14)
[2019-10-17] MEDS: MULTIVITAMINS WITH MINERALS, THERAPEUTIC TABLET PO SCH (08:29)
[2019-10-17] MEDS: FOLIC ACID 1 MG TABLET PO SCH (08:29)
[2019-10-17] MEDS: DIAZEPAM 10 MG TABLET PO SCH ×4 (08:29→20:37)
[2019-10-17 08:34] VITALS: BP 138/78
[2019-10-17] MEDS: IBUPROFEN 400 MG TABLET PO PRN ×2 (08:34→17:02)
[2019-10-17 16:14] VITALS: BP 130/90
[2019-10-17 17:03] VITALS: BP 128/85
[2019-10-18] MEDS ORDERED: DIAZEPAM 5 MG TABLET PO PRN (07:00)
[2019-10-18] MEDS: DIAZEPAM 5 MG TABLET PO SCH ×4 (08:48→22:22)
[2019-10-18] MEDS: MULTIVITAMINS WITH MINERALS, THERAPEUTIC TABLET PO SCH (08:48)
[2019-10-18] MEDS: FOLIC ACID 1 MG TABLET PO SCH (08:48)
[2019-10-18] MEDS: THIAMINE HCL 100 MG TABLET PO SCH ×2 (08:48→17:36)
[2019-10-18] MEDS: AmLODIPine BESYLATE 5 MG TABLET PO SCH (10:02)
[2019-10-18 10:24] VITALS: BP 153/97
[2019-10-18 11:13] VITALS: BP 137/89
[2019-10-18] MEDS: IBUPROFEN 400 MG TABLET PO PRN (11:13)
[2019-10-18 13:51] VITALS: BP 152/104
[2019-10-18] MEDS: ACETAMINOPHEN 325 MG TABLET PO PRN (13:51)
[2019-10-18] MEDS: QUEtiapine FUMARATE 100 MG TABLET PO PRN (15:49)
[2019-10-18 16:13] VITALS: BP 154/93
[2019-10-19] MEDS ORDERED: DIAZEPAM 5 MG TABLET PO PRN (07:00)
[2019-10-19 08:32] VITALS: BP 136/92
[2019-10-19] MEDS: MULTIVITAMINS WITH MINERALS, THERAPEUTIC TABLET PO SCH (08:39)
[2019-10-19] MEDS: THIAMINE HCL 100 MG TABLET PO SCH ×2 (08:39→15:57)
[2019-10-19] MEDS: AmLODIPine BESYLATE 5 MG TABLET PO SCH (08:39)
[2019-10-19] MEDS: FOLIC ACID 1 MG TABLET PO SCH (08:39)
[2019-10-19] MEDS: ESCITALOPRAM OXALATE 10 MG TABLET PO SCH (11:24)
[2019-10-19] MEDS: IBUPROFEN 400 MG TABLET PO PRN (15:57)
[2019-10-19 16:06] VITALS: BP 123/70
[2019-10-19] MEDS: QUEtiapine FUMARATE 100 MG TABLET PO SCH (20:09)
[2019-10-20 08:08] VITALS: BP 132/87
[2019-10-20] MEDS: MULTIVITAMINS WITH MINERALS, THERAPEUTIC TABLET PO SCH (08:48)
[2019-10-20] MEDS: THIAMINE HCL 100 MG TABLET PO SCH ×2 (08:48→15:52)
[2019-10-20] MEDS: ESCITALOPRAM OXALATE 10 MG TABLET PO SCH (08:48)
[2019-10-20] MEDS: AmLODIPine BESYLATE 5 MG TABLET PO SCH (08:48)
[2019-10-20] MEDS: FOLIC ACID 1 MG TABLET PO SCH (08:48)
[2019-10-20] MEDS: IBUPROFEN 400 MG TABLET PO PRN (11:26)
[2019-10-20] MEDS: QUEtiapine FUMARATE 100 MG TABLET PO PRN (15:52)
[2019-10-20 16:13] VITALS: BP 137/84
[2019-10-20] MEDS: QUEtiapine FUMARATE 100 MG TABLET PO SCH (20:25)
[2019-10-21] MEDS: FOLIC ACID 1 MG TABLET PO SCH (07:59)
[2019-10-21] MEDS: AmLODIPine BESYLATE 5 MG TABLET PO SCH (07:59)
[2019-10-21] MEDS: THIAMINE HCL 100 MG TABLET PO SCH ×2 (07:59→15:53)
[2019-10-21] MEDS: MULTIVITAMINS WITH MINERALS, THERAPEUTIC TABLET PO SCH (07:59)
[2019-10-21] MEDS: ESCITALOPRAM OXALATE 10 MG TABLET PO SCH (07:59)
[2019-10-21 08:01] VITALS: BP 147/80
[2019-10-21] MEDS: IBUPROFEN 400 MG TABLET PO PRN (08:01)
[2019-10-21] MEDS: QUEtiapine FUMARATE 100 MG TABLET PO PRN (08:01)
[2019-10-21] MEDS: GABAPENTIN 300 MG CAPSULE PO SCH ×2 (11:01→15:54)
[2019-10-21 16:00] VITALS: BP 114/72
[2019-10-21] MEDS: QUEtiapine FUMARATE 100 MG TABLET PO SCH (20:10)
[2019-10-22 08:02] VITALS: BP 127/82
[2019-10-22] MEDS: GABAPENTIN 300 MG CAPSULE PO SCH ×3 (08:07→16:13)
[2019-10-22] MEDS: AmLODIPine BESYLATE 5 MG TABLET PO SCH (08:07)
[2019-10-22] MEDS: IBUPROFEN 400 MG TABLET PO PRN ×2 (08:07→18:49)
[2019-10-22] MEDS: ESCITALOPRAM OXALATE 10 MG TABLET PO SCH (08:07)
[2019-10-22] MEDS: THIAMINE HCL 100 MG TABLET PO SCH ×2 (08:08→16:13)
[2019-10-22] MEDS: MULTIVITAMINS WITH MINERALS, THERAPEUTIC TABLET PO SCH (08:08)
[2019-10-22] MEDS: FOLIC ACID 1 MG TABLET PO SCH (08:08)
[2019-10-22 16:15] VITALS: BP 129/70
[2019-10-22] MEDS: QUEtiapine FUMARATE 100 MG TABLET PO SCH (20:04)
[2019-10-23] MEDS: AmLODIPine BESYLATE 5 MG TABLET PO SCH (08:24)
[2019-10-23] MEDS: MULTIVITAMINS WITH MINERALS, THERAPEUTIC TABLET PO SCH (08:24)
[2019-10-23] MEDS: THIAMINE HCL 100 MG TABLET PO SCH ×2 (08:24→16:41)
[2019-10-23] MEDS: ESCITALOPRAM OXALATE 10 MG TABLET PO SCH (08:24)
[2019-10-23] MEDS: GABAPENTIN 300 MG CAPSULE PO SCH ×3 (08:24→16:41)
[2019-10-23] MEDS: FOLIC ACID 1 MG TABLET PO SCH (08:24)
[2019-10-23 08:48] VITALS: BP 142/81
[2019-10-23 16:27] VITALS: BP 138/75
[2019-10-23] MEDS: IBUPROFEN 400 MG TABLET PO PRN (16:30)
[2019-10-23] MEDS: QUEtiapine FUMARATE 100 MG TABLET PO SCH (20:57)
[2019-10-24 08:00] VITALS: BP 105/65
[2019-10-24] MEDS: AmLODIPine BESYLATE 5 MG TABLET PO SCH (09:43)
[2019-10-24] MEDS: ESCITALOPRAM OXALATE 10 MG TABLET PO SCH (09:43)
[2019-10-24] MEDS: THIAMINE HCL 100 MG TABLET PO SCH ×2 (09:43→16:14)
[2019-10-24] MEDS: FOLIC ACID 1 MG TABLET PO SCH (09:43)
[2019-10-24] MEDS: GABAPENTIN 300 MG CAPSULE PO SCH ×3 (09:44→16:14)
[2019-10-24] MEDS: MULTIVITAMINS WITH MINERALS, THERAPEUTIC TABLET PO SCH (09:44)
[2019-10-24 13:09] VITALS: BP 105/65
[2019-10-24 17:06] VITALS: BP 146/82
[2019-10-24] MEDS: QUEtiapine FUMARATE 200 MG TABLET PO SCH (20:24)
[2019-10-25] MEDS: THIAMINE HCL 100 MG TABLET PO SCH (08:54)
[2019-10-25] MEDS: ESCITALOPRAM OXALATE 10 MG TABLET PO SCH (08:54)
[2019-10-25] MEDS: AmLODIPine BESYLATE 5 MG TABLET PO SCH (08:54)
[2019-10-25] MEDS: MULTIVITAMINS WITH MINERALS, THERAPEUTIC TABLET PO SCH (08:54)
[2019-10-25] MEDS: GABAPENTIN 300 MG CAPSULE PO SCH ×3 (08:57→16:44)
[2019-10-25 10:56] VITALS: BP 127/75
[2019-10-25] MEDS: QUEtiapine FUMARATE 100 MG TABLET PO PRN (13:00)
[2019-10-25 16:00] VITALS: BP 138/76
[2019-10-25] MEDS: QUEtiapine FUMARATE 200 MG TABLET PO SCH (20:27)
[2019-10-25] MEDS: IBUPROFEN 400 MG TABLET PO PRN (22:58)
[2019-10-25 23:00] VITALS: BP 124/74
[2019-10-26 08:49] VITALS: BP 120/93
[2019-10-26] MEDS: AmLODIPine BESYLATE 5 MG TABLET PO SCH (08:49)
[2019-10-26] MEDS: GABAPENTIN 300 MG CAPSULE PO SCH ×3 (08:49→16:01)
[2019-10-26] MEDS: ESCITALOPRAM OXALATE 10 MG TABLET PO SCH (08:49)
[2019-10-26] MEDS: MULTIVITAMINS WITH MINERALS, THERAPEUTIC TABLET PO SCH (08:49)
[2019-10-26 16:00] VITALS: BP 123/88
[2019-10-26] MEDS: IBUPROFEN 400 MG TABLET PO PRN (16:01)
[2019-10-26] MEDS: QUEtiapine FUMARATE 100 MG TABLET PO PRN (16:01)
[2019-10-26] MEDS: QUEtiapine FUMARATE 300 MG TABLET PO SCH (20:12)
[2019-10-27] MEDS: ESCITALOPRAM OXALATE 10 MG TABLET PO SCH (08:19)
[2019-10-27] MEDS: AmLODIPine BESYLATE 5 MG TABLET PO SCH (08:20)
[2019-10-27] MEDS: GABAPENTIN 300 MG CAPSULE PO SCH ×3 (08:20→16:20)
[2019-10-27] MEDS: MULTIVITAMINS WITH MINERALS, THERAPEUTIC TABLET PO SCH (08:20)
[2019-10-27 09:45] VITALS: BP 150/92
[2019-10-27] MEDS: QUEtiapine FUMARATE 100 MG TABLET PO PRN (16:21)
[2019-10-27 19:36] VITALS: BP 143/96
[2019-10-27] MEDS: QUEtiapine FUMARATE 300 MG TABLET PO SCH (20:40)
[2019-10-28] MEDS: IBUPROFEN 400 MG TABLET PO PRN (05:52)
[2019-10-28 05:54] VITALS: BP 138/80
[2019-10-28] MEDS: ESCITALOPRAM OXALATE 10 MG TABLET PO SCH (08:03)
[2019-10-28] MEDS: GABAPENTIN 300 MG CAPSULE PO SCH ×3 (08:03→16:18)
[2019-10-28] MEDS: MULTIVITAMINS WITH MINERALS, THERAPEUTIC TABLET PO SCH (08:03)
[2019-10-28] MEDS: AmLODIPine BESYLATE 5 MG TABLET PO SCH (08:03)
[2019-10-28 10:11] VITALS: BP 112/72
[2019-10-28] MEDS: QUEtiapine FUMARATE 100 MG TABLET PO PRN (14:21)
[2019-10-28 16:14] VITALS: BP 123/69
[2019-10-28] MEDS: QUEtiapine FUMARATE 300 MG TABLET PO SCH (20:17)
[2019-10-29] MEDS: ZOLPIDEM TARTRATE 10 MG TABLET PO PRN ×2 (02:39→20:55)
[2019-10-29 03:03] VITALS: BP 135/78
[2019-10-29] MEDS: ESCITALOPRAM OXALATE 10 MG TABLET PO SCH (07:37)
[2019-10-29] MEDS: AmLODIPine BESYLATE 5 MG TABLET PO SCH (07:37)
[2019-10-29] MEDS: GABAPENTIN 300 MG CAPSULE PO SCH ×3 (07:37→16:01)
[2019-10-29] MEDS: MULTIVITAMINS WITH MINERALS, THERAPEUTIC TABLET PO SCH (07:37)
[2019-10-29 08:00] VITALS: BP 118/92
[2019-10-29 16:29] VITALS: BP 133/72
[2019-10-29] MEDS: QUEtiapine FUMARATE 300 MG TABLET PO SCH (19:58)
[2019-10-30 08:00] VITALS: BP 132/70
[2019-10-30] MEDS: MULTIVITAMINS WITH MINERALS, THERAPEUTIC TABLET PO SCH (09:11)
[2019-10-30] MEDS: ESCITALOPRAM OXALATE 10 MG TABLET PO SCH (09:11)
[2019-10-30] MEDS: AmLODIPine BESYLATE 5 MG TABLET PO SCH (09:11)
[2019-10-30] MEDS: GABAPENTIN 300 MG CAPSULE PO SCH ×3 (09:11→17:00)
[2019-10-30 18:35] VITALS: BP 112/66
[2019-10-30] MEDS: QUEtiapine FUMARATE 300 MG TABLET PO SCH (20:04)
[2019-10-30] MEDS: ZOLPIDEM TARTRATE 10 MG TABLET PO PRN (20:43)
[2019-10-31 09:01] VITALS: BP 154/53
[2019-10-31] MEDS: AmLODIPine BESYLATE 5 MG TABLET PO SCH (09:15)
[2019-10-31] MEDS: MULTIVITAMINS WITH MINERALS, THERAPEUTIC TABLET PO SCH (09:15)
[2019-10-31] MEDS: ESCITALOPRAM OXALATE 10 MG TABLET PO SCH (09:15)
[2019-10-31] MEDS: GABAPENTIN 300 MG CAPSULE PO SCH ×2 (09:15→12:08)
[2019-10-31] MEDS ORDERED: QUET300T18 PO (09:53)
[2019-10-31] MEDS ORDERED: ESCI10TA61 PO (09:53)
[2019-10-31] MEDS ORDERED: MULT-723 PO (10:42)
[2019-10-31] MEDS ORDERED: GABA-531 PO (10:42)
[2019-10-31] MEDS ORDERED: AMLO5TAB9 PO (10:42)
== END 2019-10-31 14:00 | disposition home or self-care (01) | DRG 885 ==
LOC: EMS 01:37 → 3EC 03:30
DX: F33.2 Major depressive disorder, recurrent severe without psychotic features (principal); R45.851 Suicidal ideations; E11.9 Type 2 diabetes mellitus without complications; F10.20 Alcohol dependence, uncomplicated; I10 Essential (primary) hypertension; I48.91 Unspecified atrial fibrillation; F19.10 Other psychoactive substance abuse, uncomplicated; F17.210 Nicotine dependence, cigarettes, uncomplicated; Z76.5 Malingerer [conscious simulation]; Z79.899 Other long term (current) drug therapy; Z59.0 Homelessness
CPT/HCPCS: 83036; 96372; 97116; 97162; 97165; G0480; J1630; J2060; J3420

== ENCOUNTER 2019-11-07 21:40 | Emergency (ER) | payer MEDICAID, OTHER ==
[~2019-11-07] VITALS: Ht 185.4 cm; Wt 102.3 kg
[~2019-11-07 21:40] MED LIST changes: +AMLO5TAB9 PO; -CEPH500 PO; -DOCU250C91 PO; -ENAL20 PO; +ESCI10TA61 PO; -HYDR-309 PO; -HYDR25TA PO; -LIDO700A30 TP; -METF-960 PO; -METO25 PO; -MIRALAX PO; -OS500 PO; +QUET300T18 PO; -SENN-176 PO; -SERT50TA12 PO; -TAMS0.4C32 PO; -THIA100T67 PO; -VORT20TA PO
[2019-11-08 00:02] LABS: BASOPHILS % (AUTO) 0.7 % (0.0-2.0); EOSINOPHILS % (AUTO) 2.5 % (1.0-6.0); HEMATOCRIT 42.9 % (41-53); HEMOGLOBIN 13.8 g/dL (13.5-17.5); LYMPHOCYTES # (AUTO) 2.7 K/uL (1.0-4.8); MEAN CORPUSCULAR VOLUME 88 fL (80-100); MONOCYTES # (AUTO) 0.6 K/uL (0.1-1.0); MONOCYTES % (AUTO) 9.2 % (2.0-9.0); NEUTROPHILS # (AUTO) 3.3 K/uL (1.8-7.7); NEUTROPHILS % (AUTO) 48.6 % (40.0-70.0); PLATELET COUNT (AUTO) 207 K/uL (150-450); RED BLOOD CELL COUNT(AUTO) 4.91 MIL/uL (4.50-5.90); RED CELL DISTRIBUTION WIDTH 17.8 % (11.5-14.5)
[2019-11-08 00:13] LABS: ANION GAP 8 mmol/L (8-16); CALCIUM, TOTAL 8.3 mg/dL (8.8-10.5); CARBON DIOXIDE 32 mmol/L (22-29); CHLORIDE 101 mmol/L (98-107); CREATININE 0.82 mg/dL (0.60-1.30); GLOMERULAR FILTR. RATE CALC > 60 mL/min (>60); GLUCOSE,RANDOM 92 mg/dL (70-110); SODIUM SERUM 141 mmol/L (136-145); UREA NITROGEN, BLOOD 11 mg/dL (7-18)
[2019-11-08 00:16] LABS: D-DIMER 0.5 mg/L FEU (0.00-0.50); PROTHROMBIN TIME 10.7 SEC (9.4-11.6)
[2019-11-08 00:20] LABS: LACTIC ACID 1.6 mmol/L (0.4-2.0)
[2019-11-08 00:25] LABS: B-TYPE NATRIURETIC PEPTIDE 14 pg/mL (0-100)
[2019-11-08 00:39] LABS: ALANINE AMINOTRANSFERASE 47 U/L (12-78); ALBUMIN 3.6 g/dL (3.4-5.0); ALKALINE PHOSPHATASE 94 U/L (46-116); ASPARTATE AMINOTRANSFERASE 39 U/L (15-37); BILIRUBIN,TOTAL 0.3 mg/dL (0.1-1.0); CREATINE KINASE, TOTAL ONLY 558 U/L (39-308); THYROID STIMULATING HORMONE 2.73 uIU/mL (0.36-3.74); TOTAL PROTEIN, SERUM 7.5 g/dL (6.4-8.2)
[2019-11-08 00:43] LABS: INFLUENZA TYPE A NEGATIVE FOR TYPE A (NEGATIVE); INFLUENZA TYPE B NEGATIVE FOR TYPE B (NEGATIVE)
[2019-11-08 00:47] LABS: ABG A-A DIFF O2 17.1 mmHg (10-20.0); ABG BASE EXCESS 0.5 mmol/L (-2.0-3.0); ABG CARBOXYHEMOGLOBIN 2.1 % (0.0-1.5); ABG HCO3 24.5 mmol/L (22.0-26.0); ABG METHEMOGLOBIN 0.3 % (0.0-1.5); ABG OXYGEN CONTENT 18.8 mL/dL (15.0-23.0); ABG OXYGEN SATURATION 94.9 % (95.0-98.0); ABG OXYHEMOGLOBIN 92.6 % (94.0-100.0); ABG PCO2 46 mmHg (35-45); ABG PH 7.371 (7.35-7.450); ABG TOTAL HEMOGLOBIN 14.4 G/dL (12.0-18.0); O2 DEVICE,BLOOD GAS ROOM AIR (ROOM AIR); PO2, ARTERIAL BG 78.3 mmHg (79.0-87.0); SITE, BLOOD GAS RT RADIAL; SOURCE, BLOOD GAS ARTERIAL; TEMPERATURE, FAHRENHEIT, BG 97.8 FAHREN (96.0-98.6)
[2019-11-08 00:54] LABS: APPEARANCE,URINE CLEAR (CLEAR); BILIRUBIN,URINE NEGATIVE (NEGATIVE); GLUCOSE, URINE (UA) NEGATIVE (NEGATIVE); KETONES,URINE NEGATIVE (NEGATIVE); LEUKOCYTE ESTERASE ,URINE NEGATIVE (NEGATIVE); NITRATE,URINE NEGATIVE (NEGATIVE); OCCULT BLOOD,URINE NEGATIVE (NEGATIVE); PROTEIN,URINE NEGATIVE (NEGATIVE); UROBILINOGEN,URINE 0.2 mg/dL (<=1.0)
[2019-11-08 01:00] LABS: AMPHET/METH SCREEN,URINE NEGATIVE (NEGATIVE); BARBITURATE SCREEN, URINE NEGATIVE (NEGATIVE); BENZODIAZEPINES SCREEN,URINE NEGATIVE (NEGATIVE); CANNABINOID SCREEN,URINE POSITIVE (NEGATIVE); COCAINE SCREEN,URINE NEGATIVE (NEGATIVE); METHADONE SCREEN, URINE NEGATIVE (NEGATIVE); OPIATE SCREEN,URINE NEGATIVE (NEGATIVE); PHENCYCLIDINE SCREEN,URINE NEGATIVE (NEGATIVE)
[2019-11-08] MEDS ORDERED: ACETAMINOPHEN 500 MG TABLET PO ONE (05:45)
[2019-11-08 06:12] VITALS: BP 137/66
== END 2019-11-08 06:16 | disposition home or self-care (01) ==
LOC: EMS 21:41
DX: F10.129 Alcohol abuse with intoxication, unspecified (principal); I10 Essential (primary) hypertension; E11.9 Type 2 diabetes mellitus without complications; I48.91 Unspecified atrial fibrillation; F17.210 Nicotine dependence, cigarettes, uncomplicated; Y90.6 Blood alcohol level of 120-199 mg/100 ml; Z79.899 Other long term (current) drug therapy; Z03.818 Encounter for observation for suspected exposure to other biological agents ruled out
CPT/HCPCS: 36415; 70450; 71045; 80053; 80307; 81003; 82140; 82550; 82805; 82962; 83605; 83735; 83880; 84443; 84484; 85025; 85379; 85610; 86361; 87040; 87635; 87804; 93005; 99285; 99406; G0480

== ENCOUNTER 2020-05-06 02:38 | Emergency (ER) | payer OTHER ==
[~2020-05-06] VITALS: Ht 182.9 cm; Wt 140.0 kg
[~2020-05-06 02:38] MED LIST changes: +AMLO-257 PO; -AMLO5TAB9 PO; +GABA-1181 PO; -GABA-531 PO
[2020-05-06] MEDS ORDERED: BACITRACIN 0.9 GM PACKET OINTMENT TP ONE (03:45)
[2020-05-06] MEDS ORDERED: PERTUSS(ACELL),DIPH,TET VAC/PF 0.5 ML VIAL IM ONE (03:45)
[2020-05-06 04:52] LABS: BASOPHILS % (AUTO) 0.5 % (0.0-2.0); EOSINOPHILS % (AUTO) 1.4 % (1.0-6.0); HEMATOCRIT 47.4 % (41-53); HEMOGLOBIN 15.6 g/dL (13.5-17.5); LYMPHOCYTES # (AUTO) 2.2 K/uL (1.0-4.8); LYMPHOCYTES % (AUTO) 33.9 % (22.0-44.0); MEAN CORPUSCULAR HEMOGLOBIN 31.2 pg (26.0-34.0); MEAN CORPUSCULAR VOLUME 95 fL (80-100); MONOCYTES # (AUTO) 0.5 K/uL (0.1-1.0); MONOCYTES % (AUTO) 8.1 % (2.0-9.0); NEUTROPHILS # (AUTO) 3.7 K/uL (1.8-7.7); NEUTROPHILS % (AUTO) 56.1 % (40.0-70.0); PLATELET COUNT (AUTO) 249 K/uL (150-450)
[2020-05-06 04:54] LABS: ANION GAP 9 mmol/L (8-16); CALCIUM, TOTAL 8.4 mg/dL (8.8-10.5); CARBON DIOXIDE 31 mmol/L (22-29); CHLORIDE 105 mmol/L (98-107); GLOMERULAR FILTR. RATE CALC > 60 mL/min (>60); GLUCOSE,RANDOM 96 mg/dL (70-110); POTASSIUM 4.3 mmol/L (3.5-5.1); SODIUM SERUM 145 mmol/L (136-145); UREA NITROGEN, BLOOD 13 mg/dL (7-18)
[2020-05-06 05:00] LABS: ALANINE AMINOTRANSFERASE 59 U/L (12-78); ALBUMIN 3.6 g/dL (3.4-5.0); ALKALINE PHOSPHATASE 85 U/L (46-116); ASPARTATE AMINOTRANSFERASE 42 U/L (15-37); BILIRUBIN,TOTAL 0.3 mg/dL (0.1-1.0); TOTAL PROTEIN, SERUM 7.5 g/dL (6.4-8.2)
[2020-05-06 06:00] VITALS: BP 129/70
[2020-05-06] MEDS ORDERED: MULT-1119 PO (16:18)
[2020-05-06] MEDS ORDERED: ACETAMINOPHEN 500 MG TABLET ONE ×2 (16:41→16:42)
== END 2020-05-06 07:07 | disposition home or self-care (01) ==
LOC: EMS 02:38
DX: S01.81XA Laceration without foreign body of other part of head, initial encounter (principal); R41.82 Altered mental status, unspecified; K70.30 Alcoholic cirrhosis of liver without ascites; F10.129 Alcohol abuse with intoxication, unspecified; I10 Essential (primary) hypertension; E11.9 Type 2 diabetes mellitus without complications; I48.91 Unspecified atrial fibrillation; F17.210 Nicotine dependence, cigarettes, uncomplicated; Z79.899 Other long term (current) drug therapy; Y90.8 Blood alcohol level of 240 mg/100 ml or more; W18.39XA Other fall on same level, initial encounter; Y93.89 Activity, other specified; Y92.89 Other specified places as the place of occurrence of the external cause; Y99.8 Other external cause status
CPT/HCPCS: 36415; 70450; 80053; 85025; 90471; 90715; 99284; 99406; G0480

== ENCOUNTER 2020-05-06 14:38 | Emergency (ER) | payer OTHER ==
[~2020-05-06] VITALS: Ht 175.3 cm; Wt 113.6 kg
[2020-05-06] MEDS ORDERED: PERTUSS(ACELL),DIPH,TET VAC/PF 0.5 ML VIAL IM ONE (16:00)
[2020-05-06] MEDS ORDERED: ACETAMINOPHEN 500 MG TABLET PO ONE (16:15)
[2020-05-06] MEDS ORDERED: MULT-1119 PO (16:18)
[2020-05-06 16:51] LABS: BASOPHILS % (AUTO) 0.4 % (0.0-2.0); EOSINOPHILS % (AUTO) 0.7 % (1.0-6.0); HEMATOCRIT 49.2 % (41-53); HEMOGLOBIN 16.4 g/dL (13.5-17.5); LYMPHOCYTES # (AUTO) 1.9 K/uL (1.0-4.8); LYMPHOCYTES % (AUTO) 27.8 % (22.0-44.0); MEAN CORPUSCULAR HEMOGLOBIN 31.6 pg (26.0-34.0); MEAN CORPUSCULAR HGB CONC 33.4 G/dL (31.0-37.0); MEAN CORPUSCULAR VOLUME 95 fL (80-100); MONOCYTES # (AUTO) 0.4 K/uL (0.1-1.0); MONOCYTES % (AUTO) 5.3 % (2.0-9.0); NEUTROPHILS # (AUTO) 4.6 K/uL (1.8-7.7); NEUTROPHILS % (AUTO) 65.8 % (40.0-70.0); PLATELET COUNT (AUTO) 281 K/uL (150-450); RED CELL DISTRIBUTION WIDTH 16.4 % (11.5-14.5)
[2020-05-06 17:05] LABS: ANION GAP 10 mmol/L (8-16); CALCIUM, TOTAL 8.7 mg/dL (8.8-10.5); CARBON DIOXIDE 25 mmol/L (22-29); CHLORIDE 101 mmol/L (98-107); CREATININE 0.74 mg/dL (0.60-1.30); GLOMERULAR FILTR. RATE CALC > 60 mL/min (>60); GLUCOSE,RANDOM 87 mg/dL (70-110); POTASSIUM 4.2 mmol/L (3.5-5.1); SODIUM SERUM 136 mmol/L (136-145); UREA NITROGEN, BLOOD 13 mg/dL (7-18)
[2020-05-06 17:36] LABS: ALANINE AMINOTRANSFERASE 59 U/L (12-78); ALKALINE PHOSPHATASE 94 U/L (46-116); ASPARTATE AMINOTRANSFERASE 46 U/L (15-37); BILIRUBIN,TOTAL 0.3 mg/dL (0.1-1.0); CREATINE KINASE, TOTAL ONLY 481 U/L (39-308)
[2020-05-06 17:37] LABS: TOTAL PROTEIN, SERUM 7.4 g/dL (6.4-8.2)
[2020-05-06 17:54] LABS: TROPONIN I < 0.02 ng/mL (0.00-0.05)
[2020-05-06 18:02] LABS: AMMONIA 18 umol/L (11-32)
[2020-05-06 18:54] VITALS: BP 132/78
[2020-05-06] MEDS ORDERED: IBUPROFEN 600 MG TABLET PO ONE (21:45)
== END 2020-05-06 22:34 | disposition home or self-care (01) ==
LOC: EMS 14:39
DX: F10.129 Alcohol abuse with intoxication, unspecified (principal); I48.91 Unspecified atrial fibrillation; E11.9 Type 2 diabetes mellitus without complications; I10 Essential (primary) hypertension; F17.210 Nicotine dependence, cigarettes, uncomplicated; Z59.0 Homelessness; Y90.8 Blood alcohol level of 240 mg/100 ml or more
CPT/HCPCS: 36415; 70450; 72125; 80053; 82140; 82550; 84484; 85025; 99285; G0480

== ENCOUNTER 2020-11-19 11:28 | Emergency (ER) | payer OTHER ==
[~2020-11-19] VITALS: Ht 185.4 cm; Wt 113.6 kg
[~2020-11-19 11:28] MED LIST changes: +ESCI10 PO; -ESCI10TA61 PO; +MULT-1119 PO; -MULT-723 PO
[2020-11-19 13:31] LABS: BASOPHILS % (AUTO) 0.4 % (0.0-2.0); EOSINOPHILS % (AUTO) 0.5 % (1.0-6.0); HEMATOCRIT 46.5 % (41-53); HEMOGLOBIN 15.6 g/dL (13.5-17.5); LYMPHOCYTES % (AUTO) 23.8 % (22.0-44.0); MEAN CORPUSCULAR HEMOGLOBIN 31.8 pg (26.0-34.0); MEAN CORPUSCULAR HGB CONC 33.6 G/dL (31.0-37.0); MEAN CORPUSCULAR VOLUME 95 fL (80-100); MONOCYTES # (AUTO) 0.6 K/uL (0.1-1.0); MONOCYTES % (AUTO) 7.6 % (2.0-9.0); NEUTROPHILS # (AUTO) 5.6 K/uL (1.8-7.7); NEUTROPHILS % (AUTO) 67.7 % (40.0-70.0); PLATELET COUNT (AUTO) 184 K/uL (150-450); RED CELL DISTRIBUTION WIDTH 15.4 % (11.5-14.5)
[2020-11-19 13:40] LABS: ANION GAP 15 mmol/L (8-16); CALCIUM, TOTAL 8.4 mg/dL (8.8-10.5); CARBON DIOXIDE 25 mmol/L (22-29); CHLORIDE 102 mmol/L (98-107); CREATININE 0.51 mg/dL (0.60-1.30); GLOMERULAR FILTR. RATE CALC > 60 mL/min (>60); GLUCOSE,RANDOM 94 mg/dL (70-110); POTASSIUM 4.4 mmol/L (3.5-5.1); SODIUM SERUM 142 mmol/L (136-145); UREA NITROGEN, BLOOD 9 mg/dL (7-18)
[2020-11-19 14:00] LABS: AMPHET/METH SCREEN,URINE NEGATIVE (NEGATIVE); BARBITURATE SCREEN, URINE NEGATIVE (NEGATIVE); BENZODIAZEPINES SCREEN,URINE NEGATIVE (NEGATIVE); CANNABINOID SCREEN,URINE NEGATIVE (NEGATIVE); COCAINE SCREEN,URINE NEGATIVE (NEGATIVE); METHADONE SCREEN, URINE NEGATIVE (NEGATIVE); OPIATE SCREEN,URINE NEGATIVE (NEGATIVE); PHENCYCLIDINE SCREEN,URINE NEGATIVE (NEGATIVE)
[2020-11-19 14:06] LABS: ALANINE AMINOTRANSFERASE 40 U/L (12-78); ALBUMIN 3.7 g/dL (3.4-5.0); ALKALINE PHOSPHATASE 110 U/L (46-116); ASPARTATE AMINOTRANSFERASE 36 U/L (15-37); BILIRUBIN,TOTAL 0.3 mg/dL (0.1-1.0); CREATINE KINASE, TOTAL ONLY 351 U/L (39-308); TOTAL PROTEIN, SERUM 7.8 g/dL (6.4-8.2)
[2020-11-19] MEDS ORDERED: ONDANSETRON HCL 4 MG/2 ML VIAL IVP ONE (15:45)
[2020-11-19 16:13] VITALS: BP 107/77
== END 2020-11-19 16:20 | disposition home or self-care (01) ==
LOC: EMS 11:28
DX: F10.229 Alcohol dependence with intoxication, unspecified (principal); I48.91 Unspecified atrial fibrillation; E11.9 Type 2 diabetes mellitus without complications; I10 Essential (primary) hypertension; F17.210 Nicotine dependence, cigarettes, uncomplicated; Z59.0 Homelessness; Y90.8 Blood alcohol level of 240 mg/100 ml or more
CPT/HCPCS: 36415; 80053; 80307; 82550; 85025; 96374; 99285; G0480; J2405

== ENCOUNTER 2020-11-19 20:28 | Emergency (ER) | payer OTHER ==
[~2020-11-19] VITALS: Ht 182.9 cm; Wt 115.5 kg
[2020-11-20 02:42] VITALS: BP 123/86
== END 2020-11-20 04:00 | disposition left against medical advice (07) ==
LOC: EMS 20:28
DX: F10.129 Alcohol abuse with intoxication, unspecified (principal); Y90.8 Blood alcohol level of 240 mg/100 ml or more; E11.9 Type 2 diabetes mellitus without complications; I10 Essential (primary) hypertension; I48.91 Unspecified atrial fibrillation; W19.XXXA Unspecified fall, initial encounter; Y93.89 Activity, other specified; Y92.89 Other specified places as the place of occurrence of the external cause; Y99.8 Other external cause status
CPT/HCPCS: 36415; 82962; 99283; G0480

== ENCOUNTER 2020-11-20 05:22 | Emergency (ER) | payer OTHER ==
[~2020-11-20] VITALS: Ht 182.9 cm; Wt 115.5 kg
[2020-11-20 05:35] VITALS: BP 136/74
== END 2020-11-20 06:30 | disposition left against medical advice (07) ==
LOC: EMS 05:23
DX: R07.9 Chest pain, unspecified (principal); Z53.21 Procedure and treatment not carried out due to patient leaving prior to being seen by health care provider
CPT/HCPCS: 93005

== ENCOUNTER 2020-12-21 17:03 | Emergency (ER) | payer OTHER ==
[~2020-12-21] VITALS: Ht 167.6 cm; Wt 100.0 kg
[2020-12-21 19:00] LABS: AMPHET/METH SCREEN,URINE NEGATIVE (NEGATIVE); BARBITURATE SCREEN, URINE NEGATIVE (NEGATIVE); BENZODIAZEPINES SCREEN,URINE NEGATIVE (NEGATIVE); CANNABINOID SCREEN,URINE NEGATIVE (NEGATIVE); COCAINE SCREEN,URINE NEGATIVE (NEGATIVE); METHADONE SCREEN, URINE NEGATIVE (NEGATIVE); OPIATE SCREEN,URINE NEGATIVE (NEGATIVE); PHENCYCLIDINE SCREEN,URINE NEGATIVE (NEGATIVE)
[2020-12-21 19:52] LABS: BASOPHILS % (AUTO) 0.2 % (0.0-2.0); EOSINOPHILS % (AUTO) 1.5 % (1.0-6.0); HEMATOCRIT 42.9 % (41-53); HEMOGLOBIN 14.3 g/dL (13.5-17.5); LYMPHOCYTES # (AUTO) 1.6 K/uL (1.0-4.8); LYMPHOCYTES % (AUTO) 22.2 % (22.0-44.0); MEAN CORPUSCULAR HEMOGLOBIN 32.2 pg (26.0-34.0); MEAN CORPUSCULAR HGB CONC 33.3 G/dL (31.0-37.0); MEAN CORPUSCULAR VOLUME 97 fL (80-100); MONOCYTES # (AUTO) 0.5 K/uL (0.1-1.0); MONOCYTES % (AUTO) 6.9 % (2.0-9.0); NEUTROPHILS % (AUTO) 69.2 % (40.0-70.0); PLATELET COUNT (AUTO) 161 K/uL (150-450); RED BLOOD CELL COUNT(AUTO) 4.45 MIL/uL (4.50-5.90); RED CELL DISTRIBUTION WIDTH 15.1 % (11.5-14.5)
[2020-12-21 19:54] LABS: ANION GAP 9 mmol/L (8-16); CALCIUM, TOTAL 8.4 mg/dL (8.8-10.5); CARBON DIOXIDE 30 mmol/L (22-29); CHLORIDE 100 mmol/L (98-107); CREATININE 0.66 mg/dL (0.60-1.30); GLOMERULAR FILTR. RATE CALC > 60 mL/min (>60); GLUCOSE,RANDOM 95 mg/dL (70-110); POTASSIUM 3.9 mmol/L (3.5-5.1); SODIUM SERUM 139 mmol/L (136-145); UREA NITROGEN, BLOOD 10 mg/dL (7-18)
[2020-12-21 20:00] LABS: ALANINE AMINOTRANSFERASE 43 U/L (12-78); ALBUMIN 3.5 g/dL (3.4-5.0); ALKALINE PHOSPHATASE 85 U/L (46-116); ASPARTATE AMINOTRANSFERASE 33 U/L (15-37); BILIRUBIN,TOTAL 0.2 mg/dL (0.1-1.0); C-REACTIVE PROTEIN QUANT 1.37 mg/dL (0.00-0.30); TOTAL PROTEIN, SERUM 7.1 g/dL (6.4-8.2)
[2020-12-21 20:45] LABS: ERYTHROCYTE SEDIMENTATION RATE 11 MM/HR (0-15)
[2020-12-21] MEDS ORDERED: DOXYCYCLINE HYCLATE 100 MG TABLET PO ONE (21:00)
[2020-12-21 22:01] VITALS: BP 126/64
== END 2020-12-21 23:28 | disposition home or self-care (01) ==
LOC: EMS 17:05
DX: L03.116 Cellulitis of left lower limb (principal); L03.115 Cellulitis of right lower limb; F10.129 Alcohol abuse with intoxication, unspecified; I48.91 Unspecified atrial fibrillation; E11.9 Type 2 diabetes mellitus without complications; I10 Essential (primary) hypertension; F17.210 Nicotine dependence, cigarettes, uncomplicated; Z59.0 Homelessness
CPT/HCPCS: 80053; 85025; 85651; 86140; 93970; 99284

== ENCOUNTER 2020-12-23 20:12 | Emergency (ER) | payer OTHER ==
[~2020-12-23] VITALS: Ht 182.9 cm; Wt 111.4 kg
[2020-12-24 00:22] LABS: BASOPHILS % (AUTO) 0.8 % (0.0-2.0); EOSINOPHILS % (AUTO) 2.3 % (1.0-6.0); HEMOGLOBIN 14.8 g/dL (13.5-17.5); MEAN CORPUSCULAR HEMOGLOBIN 31.6 pg (26.0-34.0); MEAN CORPUSCULAR HGB CONC 32.8 G/dL (31.0-37.0); MEAN CORPUSCULAR VOLUME 96 fL (80-100); MONOCYTES # (AUTO) 0.4 K/uL (0.1-1.0); MONOCYTES % (AUTO) 7.6 % (2.0-9.0); NEUTROPHILS # (AUTO) 3.2 K/uL (1.8-7.7); NEUTROPHILS % (AUTO) 55.3 % (40.0-70.0); PLATELET COUNT (AUTO) 179 K/uL (150-450); RED BLOOD CELL COUNT(AUTO) 4.68 MIL/uL (4.50-5.90); RED CELL DISTRIBUTION WIDTH 15.6 % (11.5-14.5)
[2020-12-24 00:25] LABS: GLUCOSE,POINT OF CARE 91 MG/DL (70-110)
[2020-12-24 00:31] LABS: ANION GAP 8 mmol/L (8-16); CALCIUM, TOTAL 8.4 mg/dL (8.8-10.5); CARBON DIOXIDE 28 mmol/L (22-29); CHLORIDE 104 mmol/L (98-107); CREATININE 0.75 mg/dL (0.60-1.30); GLOMERULAR FILTR. RATE CALC > 60 mL/min (>60); GLUCOSE,RANDOM 97 mg/dL (70-110); POTASSIUM 3.8 mmol/L (3.5-5.1); SODIUM SERUM 140 mmol/L (136-145); UREA NITROGEN, BLOOD 11 mg/dL (7-18)
[2020-12-24 00:36] LABS: ALANINE AMINOTRANSFERASE 44 U/L (12-78); ALBUMIN 3.5 g/dL (3.4-5.0); ALKALINE PHOSPHATASE 91 U/L (46-116); ASPARTATE AMINOTRANSFERASE 33 U/L (15-37); BILIRUBIN,TOTAL 0.2 mg/dL (0.1-1.0); TOTAL PROTEIN, SERUM 7.3 g/dL (6.4-8.2)
[2020-12-24 02:01] LABS: AMPHET/METH SCREEN,URINE NEGATIVE (NEGATIVE); BARBITURATE SCREEN, URINE NEGATIVE (NEGATIVE); BENZODIAZEPINES SCREEN,URINE NEGATIVE (NEGATIVE); CANNABINOID SCREEN,URINE NEGATIVE (NEGATIVE); COCAINE SCREEN,URINE NEGATIVE (NEGATIVE); METHADONE SCREEN, URINE NEGATIVE (NEGATIVE); OPIATE SCREEN,URINE NEGATIVE (NEGATIVE); PHENCYCLIDINE SCREEN,URINE NEGATIVE (NEGATIVE)
[2020-12-24] MEDS ORDERED: ONDANSETRON HCL 4 MG TABLET PO ONE (04:30)
[2020-12-24 05:45] VITALS: BP 128/92
[2020-12-24] MEDS ORDERED: ACETAMINOPHEN 500 MG TABLET PO ONE (06:15)
== END 2020-12-24 08:26 | disposition home or self-care (01) ==
LOC: EMS 20:16
DX: F10.129 Alcohol abuse with intoxication, unspecified (principal); F43.21 Adjustment disorder with depressed mood; I48.91 Unspecified atrial fibrillation; E11.9 Type 2 diabetes mellitus without complications; I10 Essential (primary) hypertension; F17.210 Nicotine dependence, cigarettes, uncomplicated; Z59.0 Homelessness; Y90.8 Blood alcohol level of 240 mg/100 ml or more
CPT/HCPCS: 36415; 80053; 80307; 82962; 85025; 99285; G0480; Q0162

== ENCOUNTER 2020-12-27 18:40 | Emergency (ER) | payer OTHER ==
[~2020-12-27] VITALS: Ht 175.3 cm; Wt 109.1 kg
[2020-12-27 19:40] LABS: GLUCOSE,POINT OF CARE 117 MG/DL (70-110)
[2020-12-28 00:24] VITALS: BP 128/74
== END 2020-12-28 00:45 | disposition home or self-care (01) ==
LOC: EMS 18:41
DX: F10.129 Alcohol abuse with intoxication, unspecified (principal); M54.2 Cervicalgia; I48.91 Unspecified atrial fibrillation; I10 Essential (primary) hypertension; F17.210 Nicotine dependence, cigarettes, uncomplicated; Z59.0 Homelessness; Y90.8 Blood alcohol level of 240 mg/100 ml or more
CPT/HCPCS: 36415; 82962; 99285; G0480; 82948

== ENCOUNTER 2021-08-16 08:57 | Emergency (ER) | payer MEDICARE, OTHER ==
[~2021-08-16] VITALS: Ht 177.8 cm; Wt 100.0 kg
[~2021-08-16 08:57] MED LIST changes: -AMLO-257 PO; +AMLO-258 PO; +PIPE3.3719 IV; +QUET200T PO; -QUET300T18 PO
[2021-08-16 15:17] VITALS: BP 149/80
[2021-08-17] MEDS ORDERED: MULT-1239 PO (13:12)
== END 2021-08-16 15:50 | disposition home or self-care (01) ==
LOC: EMS 09:02
DX: F10.229 Alcohol dependence with intoxication, unspecified (principal); I10 Essential (primary) hypertension; J44.9 Chronic obstructive pulmonary disease, unspecified; I48.91 Unspecified atrial fibrillation; F17.210 Nicotine dependence, cigarettes, uncomplicated; Y90.6 Blood alcohol level of 120-199 mg/100 ml; Z79.899 Other long term (current) drug therapy
CPT/HCPCS: 36415; 70450; 99285; G0480

== ENCOUNTER 2021-08-16 18:59 | Inpatient (IN) | payer MEDICARE, OTHER ==
[~2021-08-16] VITALS: Ht 182.9 cm; Wt 118.7 kg
[2021-08-16 20:58] LABS: BASOPHILS % (AUTO) 0.7 % (0.0-2.0); EOSINOPHILS % (AUTO) 0.6 % (1.0-6.0); HEMATOCRIT 51.2 % (41-53); HEMOGLOBIN 17.7 g/dL (13.5-17.5); LYMPHOCYTES # (AUTO) 1.7 K/uL (1.0-4.8); LYMPHOCYTES % (AUTO) 13.7 % (22.0-44.0); MEAN CORPUSCULAR HEMOGLOBIN 32.6 pg (26.0-34.0); MEAN CORPUSCULAR HGB CONC 34.5 G/dL (31.0-37.0); MEAN CORPUSCULAR VOLUME 95 fL (80-100); MONOCYTES # (AUTO) 0.7 K/uL (0.1-1.0); MONOCYTES % (AUTO) 5.3 % (2.0-9.0); NEUTROPHILS # (AUTO) 10.1 K/uL (1.8-7.7); NEUTROPHILS % (AUTO) 79.7 % (40.0-70.0); PLATELET COUNT (AUTO) 207 K/uL (150-450); RED BLOOD CELL COUNT(AUTO) 5.41 MIL/uL (4.50-5.90); RED CELL DISTRIBUTION WIDTH 14.2 % (11.5-14.5)
[2021-08-16 22:16] LABS: ANION GAP 15 mmol/L (8-16); CALCIUM, TOTAL 8.7 mg/dL (8.8-10.5); CARBON DIOXIDE 26 mmol/L (22-29); CHLORIDE 98 mmol/L (98-107); CREATININE 0.72 mg/dL (0.60-1.30); GLOMERULAR FILTR. RATE CALC > 60 mL/min (>60); GLUCOSE,RANDOM 117 mg/dL (70-110); UREA NITROGEN, BLOOD 13 mg/dL (7-18)
[2021-08-16 22:20] LABS: SODIUM SERUM 139 mmol/L (136-145)
[2021-08-16 22:21] LABS: ALANINE AMINOTRANSFERASE 78 U/L (12-78); ALBUMIN 3.6 g/dL (3.4-5.0); ALKALINE PHOSPHATASE 188 U/L (46-116); ASPARTATE AMINOTRANSFERASE 153 U/L (15-37); BILIRUBIN,TOTAL 1.1 mg/dL (0.1-1.0); LIPASE 75 U/L (73-393); TOTAL PROTEIN, SERUM 7.7 g/dL (6.4-8.2)
[2021-08-17] MEDS ORDERED: HYDROCORTISONE 2.5% 30 GM CREAM TP ONE (00:45)
[2021-08-17] MEDS ORDERED: ACETAMINOPHEN 500 MG TABLET PO ONE (01:00)
[2021-08-17] MEDS ORDERED: 0.9% SODIUM CHLORIDE 10 ML SYRINGE IVP PRN (03:45)
[2021-08-17] MEDS ORDERED: MAGNESIUM SULFATE 2 GM, MVI, ADULT NO.1 WITH VIT K 10 ML, THIAMINE 100 MG, FOLIC ACID 1... IV ONE ×10 (03:45→13:00)
[2021-08-17] MEDS ORDERED: ACETAMINOPHEN 325 MG TABLET PO PRN ×2 (03:45→13:00)
[2021-08-17] MEDS ORDERED: ONDANSETRON HCL 4 MG/2 ML VIAL IVP PRN ×2 (03:45→13:00)
[2021-08-17] MEDS ORDERED: POTASSIUM CHLORIDE 10% 40 MEQ/30 ML LIQUID UDCUP PO ONE (04:00)
[2021-08-17 04:34] LABS: COVID AG,FIA SOURCE NASOPHARYNGEAL
[2021-08-17] MEDS ORDERED: KETOROLAC TROMETHAMINE 30 MG/ML VIAL IVP ONE (07:30)
[2021-08-17] MEDS ORDERED: FAMOTIDINE 20 MG TABLET PO ONE (07:30)
[2021-08-17] MEDS ORDERED: MAGNESIUM HYDROXIDE SUSPENSION 30 ML UDCUP PO PRN (13:00)
[2021-08-17] MEDS ORDERED: ZOLPIDEM TARTRATE 5 MG TABLET PO PRN (13:00)
[2021-08-17] MEDS ORDERED: BISACODYL 10 MG RECTAL RECTAL SUPPOSITORY PR PRN (13:00)
[2021-08-17] MEDS ORDERED: LORazepam 2 MG/ML VIAL IVP PRN (13:00)
[2021-08-17] MEDS ORDERED: MULT-1239 PO (13:12)
[2021-08-17] MEDS ORDERED: *CLINICAL-LEVOFLOXACIN IVPB DOSING CLINICAL ONE (14:30)
[2021-08-17 16:19] VITALS: BP 160/99
[2021-08-17] MEDS: HEPARIN SODIUM,PORCINE 5,000 UNITS/ML VIAL SQ SCH (17:21)
[2021-08-17] MEDS: GABAPENTIN 300 MG CAPSULE PO SCH ×2 (17:21→20:15)
[2021-08-17] MEDS: LEVOFLOXACIN 750 MG/D5% WATER 150 ML IV SCH (18:10)
[2021-08-17] MEDS ORDERED: SODIUM CHLORIDE 0.9% 100 ML ONE (18:15)
[2021-08-17] MEDS: HYDROCODONE/ACETAMINOPHEN 5-325 MG TABLET PO PRN (20:15)
[2021-08-17] MEDS: DOCUSATE SODIUM 100 MG CAPSULE PO SCH (20:15)
[2021-08-17] MEDS: QUEtiapine FUMARATE 200 MG TABLET PO SCH (20:15)
[2021-08-17] MEDS: NYSTATIN 15 GM POWDER BOTTLE TP SCH (20:16)
[2021-08-17 20:31] VITALS: BP 159/99
[2021-08-17] MEDS: MORPHINE SULFATE 2 MG/ML SYRINGE IVP PRN (21:36)
[2021-08-17 23:29] VITALS: BP 151/81
[2021-08-18] MEDS: HEPARIN SODIUM,PORCINE 5,000 UNITS/ML VIAL SQ SCH ×3 (00:10→16:00)
[2021-08-18] MEDS: HYDROCODONE/ACETAMINOPHEN 5-325 MG TABLET PO PRN ×3 (00:11→21:08)
[2021-08-18 04:07] VITALS: BP 150/86
[2021-08-18 07:01] LABS: BASOPHILS % (AUTO) 0.2 % (0.0-2.0); EOSINOPHILS % (AUTO) 1.8 % (1.0-6.0); HEMATOCRIT 41.1 % (41-53); HEMOGLOBIN 14.5 g/dL (13.5-17.5); LYMPHOCYTES # (AUTO) 1.1 K/uL (1.0-4.8); MEAN CORPUSCULAR HEMOGLOBIN 33.3 pg (26.0-34.0); MEAN CORPUSCULAR HGB CONC 35.2 G/dL (31.0-37.0); MEAN CORPUSCULAR VOLUME 95 fL (80-100); MONOCYTES # (AUTO) 0.3 K/uL (0.1-1.0); MONOCYTES % (AUTO) 5.4 % (2.0-9.0); NEUTROPHILS # (AUTO) 4.4 K/uL (1.8-7.7); NEUTROPHILS % (AUTO) 73.6 % (40.0-70.0); PLATELET COUNT (AUTO) 125 K/uL (150-450); RED BLOOD CELL COUNT(AUTO) 4.35 MIL/uL (4.50-5.90); RED CELL DISTRIBUTION WIDTH 14.1 % (11.5-14.5)
[2021-08-18 07:19] LABS: ANION GAP 4 mmol/L (8-16); CALCIUM, TOTAL 8.5 mg/dL (8.8-10.5); CARBON DIOXIDE 34 mmol/L (22-29); CHLORIDE 106 mmol/L (98-107); CREATININE 0.69 mg/dL (0.60-1.30); GLOMERULAR FILTR. RATE CALC > 60 mL/min (>60); GLUCOSE,RANDOM 103 mg/dL (70-110); PHOSPHORUS 4.1 mg/dL (2.5-4.9); POTASSIUM 3.6 mmol/L (3.5-5.1); SODIUM SERUM 144 mmol/L (136-145); UREA NITROGEN, BLOOD 11 mg/dL (7-18)
[2021-08-18 08:04] VITALS: BP 147/76
[2021-08-18] MEDS: DOCUSATE SODIUM 100 MG CAPSULE PO SCH ×2 (09:00→21:08)
[2021-08-18] MEDS: PANTOPRAZOLE SODIUM 40 MG DR TABLET PO SCH (09:11)
[2021-08-18] MEDS: ESCITALOPRAM OXALATE 10 MG TABLET PO SCH (09:12)
[2021-08-18] MEDS: AmLODIPine BESYLATE 10 MG TABLET PO SCH (09:12)
[2021-08-18] MEDS: GABAPENTIN 300 MG CAPSULE PO SCH ×3 (09:12→21:08)
[2021-08-18] MEDS: MORPHINE SULFATE 2 MG/ML SYRINGE IVP PRN (11:01)
[2021-08-18 13:37] VITALS: BP 142/81
[2021-08-18 16:21] VITALS: BP 151/83
[2021-08-18 16:35] LABS: APPEARANCE,URINE CLEAR (CLEAR); BILIRUBIN,URINE NEGATIVE (NEGATIVE); GLUCOSE, URINE (UA) NEGATIVE (NEGATIVE); KETONES,URINE NEGATIVE (NEGATIVE); LEUKOCYTE ESTERASE ,URINE TRACE (NEGATIVE); NITRATE,URINE NEGATIVE (NEGATIVE); OCCULT BLOOD,URINE NEGATIVE (NEGATIVE); PH,URINE 6.5 (5.0-8.0); PROTEIN,URINE NEGATIVE (NEGATIVE); UROBILINOGEN,URINE 0.2 mg/dL (<=1.0)
[2021-08-18 16:52] LABS: BACTERIA,URINE Rare /HPF (None Seen); RBC,URINE None Seen /HPF (0-2); SQUAMOUS EPITHELIAL CELL,UR Rare /LPF (None Seen)
[2021-08-18] MEDS: LEVOFLOXACIN 750 MG/D5% WATER 150 ML IV SCH (18:34)
[2021-08-18 20:10] VITALS: BP 154/86
[2021-08-18] MEDS: QUEtiapine FUMARATE 200 MG TABLET PO SCH (21:08)
[2021-08-18] MEDS: NYSTATIN 15 GM POWDER BOTTLE TP SCH (21:08)
[2021-08-19 04:38] VITALS: BP 143/98
[2021-08-19 07:26] VITALS: BP 147/71
[2021-08-19] MEDS: GABAPENTIN 300 MG CAPSULE PO SCH ×3 (08:02→20:42)
[2021-08-19] MEDS: HYDROCODONE/ACETAMINOPHEN 5-325 MG TABLET PO PRN ×4 (08:02→20:43)
[2021-08-19] MEDS: PANTOPRAZOLE SODIUM 40 MG DR TABLET PO SCH (08:02)
[2021-08-19] MEDS: AmLODIPine BESYLATE 10 MG TABLET PO SCH (08:02)
[2021-08-19] MEDS: DOCUSATE SODIUM 100 MG CAPSULE PO SCH ×2 (08:02→20:41)
[2021-08-19] MEDS: HEPARIN SODIUM,PORCINE 5,000 UNITS/ML VIAL SQ SCH ×4 (08:02→23:59)
[2021-08-19] MEDS: ESCITALOPRAM OXALATE 10 MG TABLET PO SCH (08:02)
[2021-08-19 08:25] LABS: BASOPHILS % (AUTO) 0.3 % (0.0-2.0); EOSINOPHILS % (AUTO) 2.2 % (1.0-6.0); HEMATOCRIT 42.8 % (41-53); HEMOGLOBIN 14.8 g/dL (13.5-17.5); LYMPHOCYTES # (AUTO) 1.1 K/uL (1.0-4.8); LYMPHOCYTES % (AUTO) 20.8 % (22.0-44.0); MEAN CORPUSCULAR HEMOGLOBIN 33.4 pg (26.0-34.0); MEAN CORPUSCULAR HGB CONC 34.6 G/dL (31.0-37.0); MEAN CORPUSCULAR VOLUME 97 fL (80-100); MONOCYTES # (AUTO) 0.3 K/uL (0.1-1.0); MONOCYTES % (AUTO) 5.4 % (2.0-9.0); NEUTROPHILS # (AUTO) 3.6 K/uL (1.8-7.7); NEUTROPHILS % (AUTO) 71.3 % (40.0-70.0); PLATELET COUNT (AUTO) 124 K/uL (150-450); RED BLOOD CELL COUNT(AUTO) 4.43 MIL/uL (4.50-5.90); RED CELL DISTRIBUTION WIDTH 14.1 % (11.5-14.5)
[2021-08-19 08:42] LABS: ANION GAP 2 mmol/L (8-16); CALCIUM, TOTAL 8.6 mg/dL (8.8-10.5); CARBON DIOXIDE 32 mmol/L (22-29); CHLORIDE 104 mmol/L (98-107); CREATININE 0.62 mg/dL (0.60-1.30); GLOMERULAR FILTR. RATE CALC > 60 mL/min (>60); GLUCOSE,RANDOM 91 mg/dL (70-110); POTASSIUM 3.9 mmol/L (3.5-5.1); SODIUM SERUM 138 mmol/L (136-145); UREA NITROGEN, BLOOD 10 mg/dL (7-18)
[2021-08-19 10:33] VITALS: BP 137/64
[2021-08-19 15:51] VITALS: BP 151/88
[2021-08-19] MEDS: LEVOFLOXACIN 750 MG/D5% WATER 150 ML IV SCH (17:07)
[2021-08-19 19:27] VITALS: BP 149/86
[2021-08-19] MEDS: QUEtiapine FUMARATE 200 MG TABLET PO SCH (20:42)
[2021-08-19] MEDS: NYSTATIN 15 GM POWDER BOTTLE TP SCH (20:44)
[2021-08-20] VITALS (8 sets, daily range): BP systolic 105–149; BP diastolic 61–92
[2021-08-20 06:59] LABS: BASOPHILS % (AUTO) 0.3 % (0.0-2.0); EOSINOPHILS % (AUTO) 2.2 % (1.0-6.0); HEMATOCRIT 44.1 % (41-53); HEMOGLOBIN 15.4 g/dL (13.5-17.5); LYMPHOCYTES # (AUTO) 1.1 K/uL (1.0-4.8); LYMPHOCYTES % (AUTO) 20.3 % (22.0-44.0); MEAN CORPUSCULAR HGB CONC 34.9 G/dL (31.0-37.0); MEAN CORPUSCULAR VOLUME 95 fL (80-100); MONOCYTES # (AUTO) 0.3 K/uL (0.1-1.0); MONOCYTES % (AUTO) 6.1 % (2.0-9.0); NEUTROPHILS % (AUTO) 71.1 % (40.0-70.0); PLATELET COUNT (AUTO) 141 K/uL (150-450); RED BLOOD CELL COUNT(AUTO) 4.66 MIL/uL (4.50-5.90); RED CELL DISTRIBUTION WIDTH 14.3 % (11.5-14.5)
[2021-08-20 07:14] LABS: ANION GAP 3 mmol/L (8-16); CALCIUM, TOTAL 8.7 mg/dL (8.8-10.5); CARBON DIOXIDE 34 mmol/L (22-29); CHLORIDE 101 mmol/L (98-107); CREATININE 0.61 mg/dL (0.60-1.30); GLOMERULAR FILTR. RATE CALC > 60 mL/min (>60); GLUCOSE,RANDOM 107 mg/dL (70-110); SODIUM SERUM 138 mmol/L (136-145); UREA NITROGEN, BLOOD 13 mg/dL (7-18)
[2021-08-20] MEDS: HYDROCODONE/ACETAMINOPHEN 5-325 MG TABLET PO PRN ×2 (08:02→18:32)
[2021-08-20] MEDS: PANTOPRAZOLE SODIUM 40 MG DR TABLET PO SCH (08:02)
[2021-08-20] MEDS: GABAPENTIN 300 MG CAPSULE PO SCH ×3 (08:02→21:24)
[2021-08-20] MEDS: DOCUSATE SODIUM 100 MG CAPSULE PO SCH ×2 (08:02→21:24)
[2021-08-20] MEDS: ESCITALOPRAM OXALATE 10 MG TABLET PO SCH (08:03)
[2021-08-20] MEDS: AmLODIPine BESYLATE 10 MG TABLET PO SCH (08:03)
[2021-08-20] MEDS: HEPARIN SODIUM,PORCINE 5,000 UNITS/ML VIAL SQ SCH ×2 (08:03→15:41)
[2021-08-20] MEDS: LEVOFLOXACIN 750 MG/D5% WATER 150 ML IV SCH (17:04)
[2021-08-20] MEDS: QUEtiapine FUMARATE 200 MG TABLET PO SCH (21:24)
[2021-08-20] MEDS: NYSTATIN 15 GM POWDER BOTTLE TP SCH (21:30)
[2021-08-21] MEDS: HYDROCODONE/ACETAMINOPHEN 5-325 MG TABLET PO PRN ×2 (00:01→08:39)
[2021-08-21] MEDS: HEPARIN SODIUM,PORCINE 5,000 UNITS/ML VIAL SQ SCH ×3 (00:01→16:00)
[2021-08-21 04:45] VITALS: BP 141/88
[2021-08-21 07:33] VITALS: BP 132/84
[2021-08-21] MEDS: DOCUSATE SODIUM 100 MG CAPSULE PO SCH (08:37)
[2021-08-21] MEDS: AmLODIPine BESYLATE 10 MG TABLET PO SCH (08:37)
[2021-08-21] MEDS: ESCITALOPRAM OXALATE 10 MG TABLET PO SCH (08:37)
[2021-08-21] MEDS: PANTOPRAZOLE SODIUM 40 MG DR TABLET PO SCH (08:37)
[2021-08-21] MEDS: GABAPENTIN 300 MG CAPSULE PO SCH ×2 (08:37→16:25)
[2021-08-21 11:17] VITALS: BP 129/75
[2021-08-21] MEDS ORDERED: LEVO750P7 IV (14:21)
[2021-08-21] MEDS ORDERED: NYST30CR9 TP (14:22)
[2021-08-21] MEDS ORDERED: ACET-3207 PO (14:24)
[2021-08-21] MEDS ORDERED: ZOLP-280 PO (14:25)
[2021-08-21 15:23] VITALS: BP 134/78
[2021-08-21] MEDS ORDERED: LEVO750T68 PO ×2 (16:02→16:03)
[2021-08-21 17:05] LABS: COVID AG,FIA SOURCE NASAL SWAB
== END 2021-08-21 19:40 | DRG 74 ==
LOC: EMS 19:00 → 5S 08-17 14:52
PROVIDERS: ADMIT Internal Medicine; ATTEND Internal Medicine
DX: G90.8 Other disorders of autonomic nervous system (principal); I48.20 Chronic atrial fibrillation, unspecified; R65.10 Systemic inflammatory response syndrome (SIRS) of non-infectious origin without acute organ dysfunction; L03.90 Cellulitis, unspecified; F10.139 Alcohol abuse with withdrawal, unspecified; F10.129 Alcohol abuse with intoxication, unspecified; F25.1 Schizoaffective disorder, depressive type; E87.6 Hypokalemia; E66.9 Obesity, unspecified; N49.2 Inflammatory disorders of scrotum; J44.9 Chronic obstructive pulmonary disease, unspecified; I10 Essential (primary) hypertension; Z20.822 Contact with and (suspected) exposure to COVID-19; L24.A0 Irritant contact dermatitis due to friction or contact with body fluids, unspecified; K70.30 Alcoholic cirrhosis of liver without ascites; Y90.9 Presence of alcohol in blood, level not specified; F17.210 Nicotine dependence, cigarettes, uncomplicated; Z79.899 Other long term (current) drug therapy; Z68.35 Body mass index [BMI] 35.0-35.9, adult
CPT/HCPCS: 70450; 71045; 72040; 72125; 80048; 80053; 81001; 82140; 83690; 83735; 84100; 84484; 85025; 93005; 97116; 97162; 97530; 99285; G0480; J1644; J1885; J1956; J2060; J2270; J3411; J3475; J3490; J7030; J7050; 36415-L1; 36415-TC

== ENCOUNTER 2021-08-21 12:34 | Inpatient (IN) | payer MEDICARE, MEDICAID ==
[~2021-08-21 12:34] MED LIST changes: -MULT-1119 PO; +MULT-1239 PO; -PIPE3.3719 IV
[2021-08-21] MEDS ORDERED: LEVO750P7 IV (14:21)
[2021-08-21] MEDS ORDERED: NYST30CR9 TP (14:22)
[2021-08-21] MEDS ORDERED: ACET-3207 PO (14:24)
[2021-08-21] MEDS ORDERED: ZOLP-280 PO (14:25)
[2021-08-21] MEDS ORDERED: LEVO750T68 PO ×2 (16:02→16:03)
[2021-08-21 20:21] VITALS: BP 131/81
[2021-08-21] MEDS: QUEtiapine FUMARATE 200 MG TABLET PO SCH (22:31)
[2021-08-22 06:52] LABS: BASOPHILS % (AUTO) 0.3 % (0.0-2.0); EOSINOPHILS % (AUTO) 1.6 % (1.0-6.0); HEMATOCRIT 44.8 % (41-53); HEMOGLOBIN 15.6 g/dL (13.5-17.5); LYMPHOCYTES # (AUTO) 1.3 K/uL (1.0-4.8); LYMPHOCYTES % (AUTO) 18.8 % (22.0-44.0); MEAN CORPUSCULAR HGB CONC 34.7 G/dL (31.0-37.0); MEAN CORPUSCULAR VOLUME 95 fL (80-100); MONOCYTES # (AUTO) 0.5 K/uL (0.1-1.0); MONOCYTES % (AUTO) 6.9 % (2.0-9.0); NEUTROPHILS # (AUTO) 5.1 K/uL (1.8-7.7); NEUTROPHILS % (AUTO) 72.4 % (40.0-70.0); PLATELET COUNT (AUTO) 159 K/uL (150-450); RED BLOOD CELL COUNT(AUTO) 4.72 MIL/uL (4.50-5.90); RED CELL DISTRIBUTION WIDTH 14.3 % (11.5-14.5)
[2021-08-22 07:37] LABS: ALANINE AMINOTRANSFERASE 64 U/L (12-78); ALKALINE PHOSPHATASE 115 U/L (46-116); ANION GAP 6 mmol/L (8-16); ASPARTATE AMINOTRANSFERASE 41 U/L (15-37); BILIRUBIN,TOTAL 0.3 mg/dL (0.1-1.0); CALCIUM, TOTAL 8.8 mg/dL (8.8-10.5); CARBON DIOXIDE 32 mmol/L (22-29); CHLORIDE 101 mmol/L (98-107); CREATININE 0.64 mg/dL (0.60-1.30); FREE T4 (FREE THYROXINE) 0.81 ng/dL (0.76-1.46); GLOMERULAR FILTR. RATE CALC > 60 mL/min (>60); GLUCOSE,RANDOM 106 mg/dL (70-110); SODIUM SERUM 139 mmol/L (136-145); THYROID STIMULATING HORMONE 3.29 uIU/mL (0.36-3.74); TOTAL PROTEIN, SERUM 6.9 g/dL (6.4-8.2); UREA NITROGEN, BLOOD 16 mg/dL (7-18)
[2021-08-22 08:00] VITALS: BP 134/85
[2021-08-22] MEDS: AmLODIPine BESYLATE 10 MG TABLET PO SCH (09:46)
[2021-08-22] MEDS: LEVOFLOXACIN 750 MG TABLET PO SCH (09:46)
[2021-08-22] MEDS: ESCITALOPRAM OXALATE 10 MG TABLET PO SCH (09:46)
[2021-08-22] MEDS ORDERED: ONDANSETRON HCL 4 MG TABLET PO PRN (15:15)
[2021-08-22] MEDS ORDERED: MAG HYDROX/AL HYDROX/SIMETH ES 30 ML SUSPENSION UDCUP PO PRN (15:15)
[2021-08-22] MEDS ORDERED: DOCUSATE SODIUM 100 MG CAPSULE PO PRN (15:15)
[2021-08-22] MEDS ORDERED: ALBUTEROL SULFATE HFA 90 MCG/PUFF 8 GM INHALER IH PRN (15:15)
[2021-08-22] MEDS ORDERED: GuaiFENesin/D-METHORPHAN [SUGAR-FREE] 200-20MG/10 ML SYRUP UDCUP PO PRN (15:15)
[2021-08-22] MEDS ORDERED: MAGNESIUM HYDROXIDE SUSPENSION 30 ML UDCUP PO PRN (15:15)
[2021-08-22] MEDS ORDERED: CloNIDine HCL 0.1 MG TABLET PO PRN (15:15)
[2021-08-22] MEDS ORDERED: NICOTINE 14 MG/24 HOUR PATCH TD PRN (15:15)
[2021-08-22] MEDS ORDERED: PETROLATUM,WHITE 28 GM JELLY TP PRN (15:15)
[2021-08-22 16:07] VITALS: BP 138/96
[2021-08-22 17:22] VITALS: BP 138/96
[2021-08-22] MEDS: IBUPROFEN 400 MG TABLET PO PRN (17:22)
[2021-08-22] MEDS: QUEtiapine FUMARATE 200 MG TABLET PO SCH (21:02)
[2021-08-22] MEDS: ZOLPIDEM TARTRATE 10 MG TABLET PO PRN (21:02)
[2021-08-23] MEDS: AmLODIPine BESYLATE 10 MG TABLET PO SCH (09:08)
[2021-08-23] MEDS: LEVOFLOXACIN 750 MG TABLET PO SCH (09:09)
[2021-08-23] MEDS: ESCITALOPRAM OXALATE 10 MG TABLET PO SCH (09:09)
[2021-08-23] MEDS: IBUPROFEN 400 MG TABLET PO PRN (09:36)
[2021-08-23 09:40] VITALS: BP 150/83
[2021-08-23 10:39] VITALS: BP 130/80
[2021-08-23 16:00] VITALS: BP 147/85
[2021-08-23] MEDS: QUEtiapine FUMARATE 200 MG TABLET PO SCH (20:00)
[2021-08-23] MEDS: ZOLPIDEM TARTRATE 10 MG TABLET PO PRN (20:01)
[2021-08-23] MEDS: ACETAMINOPHEN 325 MG TABLET PO PRN (21:08)
[2021-08-24] MEDS: AmLODIPine BESYLATE 10 MG TABLET PO SCH (08:34)
[2021-08-24] MEDS: ESCITALOPRAM OXALATE 10 MG TABLET PO SCH (08:34)
[2021-08-24] MEDS: LEVOFLOXACIN 750 MG TABLET PO SCH (08:34)
[2021-08-24 09:29] VITALS: BP 114/68
[2021-08-24] MEDS: IBUPROFEN 400 MG TABLET PO PRN (09:29)
[2021-08-24 12:49] VITALS: BP 114/68
[2021-08-24 17:20] VITALS: BP 157/91
[2021-08-24] MEDS: ZOLPIDEM TARTRATE 10 MG TABLET PO PRN (21:14)
[2021-08-24] MEDS: QUEtiapine FUMARATE 200 MG TABLET PO SCH (21:14)
[2021-08-25] MEDS: AmLODIPine BESYLATE 10 MG TABLET PO SCH (08:20)
[2021-08-25] MEDS: LEVOFLOXACIN 750 MG TABLET PO SCH (08:20)
[2021-08-25 08:21] VITALS: BP 145/84
[2021-08-25] MEDS: IBUPROFEN 400 MG TABLET PO PRN (08:21)
[2021-08-25] MEDS: ESCITALOPRAM OXALATE 10 MG TABLET PO SCH (08:21)
[2021-08-25] MEDS: LORazepam 2 MG TABLET PO PRN ×2 (12:07→17:21)
[2021-08-25 16:00] VITALS: BP 130/74
[2021-08-25] MEDS: HALOPERIDOL 5 MG TABLET PO PRN (17:21)
[2021-08-25] MEDS: QUEtiapine FUMARATE 200 MG TABLET PO SCH (20:54)
[2021-08-25] MEDS: ZOLPIDEM TARTRATE 10 MG TABLET PO PRN (20:58)
[2021-08-26] MEDS: ESCITALOPRAM OXALATE 10 MG TABLET PO SCH (08:40)
[2021-08-26] MEDS: AmLODIPine BESYLATE 10 MG TABLET PO SCH (08:40)
[2021-08-26] MEDS: LEVOFLOXACIN 750 MG TABLET PO SCH (08:40)
[2021-08-26 09:00] VITALS: BP 122/74
[2021-08-26] MEDS: HALOPERIDOL 5 MG TABLET PO PRN (13:02)
[2021-08-26] MEDS: LORazepam 2 MG TABLET PO PRN (13:02)
[2021-08-26] MEDS: LOPERAMIDE HCL 2 MG CAPSULE PO PRN (13:54)
[2021-08-26] MEDS ORDERED: TraMADol HCL 50 MG TABLET PO PRN (14:15)
[2021-08-26 16:00] VITALS: BP 134/80
[2021-08-26] MEDS: QUEtiapine FUMARATE 200 MG TABLET PO SCH (20:30)
[2021-08-26] MEDS: ZOLPIDEM TARTRATE 10 MG TABLET PO PRN (21:21)
[2021-08-27] MEDS: LEVOFLOXACIN 750 MG TABLET PO SCH (08:17)
[2021-08-27] MEDS: AmLODIPine BESYLATE 10 MG TABLET PO SCH (08:18)
[2021-08-27] MEDS: ESCITALOPRAM OXALATE 10 MG TABLET PO SCH (08:18)
[2021-08-27 09:26] VITALS: BP 115/72
[2021-08-27] MEDS: HALOPERIDOL 5 MG TABLET PO PRN (10:38)
[2021-08-27] MEDS: LORazepam 2 MG TABLET PO PRN (10:38)
[2021-08-27] MEDS: IBUPROFEN 400 MG TABLET PO PRN ×2 (11:22→20:10)
[2021-08-27 11:23] VITALS: BP 108/72
[2021-08-27 12:23] VITALS: BP 116/68
[2021-08-27 14:06] LABS: COVID AG,FIA SOURCE NASOPHARYNGEAL
[2021-08-27 16:31] VITALS: BP 124/76
[2021-08-27] MEDS: QUEtiapine FUMARATE 200 MG TABLET PO SCH (20:09)
[2021-08-27] MEDS: ZOLPIDEM TARTRATE 10 MG TABLET PO PRN (20:10)
[2021-08-28] MEDS: AmLODIPine BESYLATE 10 MG TABLET PO SCH (08:23)
[2021-08-28] MEDS: ESCITALOPRAM OXALATE 10 MG TABLET PO SCH (08:23)
[2021-08-28] MEDS: LEVOFLOXACIN 750 MG TABLET PO SCH (08:23)
[2021-08-28] MEDS: LORazepam 2 MG TABLET PO PRN (08:34)
[2021-08-28 09:18] VITALS: BP 118/72
[2021-08-28 12:51] VITALS: BP 138/76
[2021-08-28] MEDS: LOPERAMIDE HCL 2 MG CAPSULE PO PRN (13:17)
[2021-08-28 16:15] VITALS: BP 123/85
[2021-08-28] MEDS: IBUPROFEN 400 MG TABLET PO PRN (16:49)
[2021-08-28] MEDS: QUEtiapine FUMARATE 200 MG TABLET PO SCH (20:04)
[2021-08-29] MEDS: AmLODIPine BESYLATE 10 MG TABLET PO SCH (08:26)
[2021-08-29] MEDS: ESCITALOPRAM OXALATE 10 MG TABLET PO SCH (08:26)
[2021-08-29 08:56] VITALS: BP 122/74
[2021-08-29 09:39] VITALS: BP 136/76
[2021-08-29] MEDS: LORazepam 2 MG TABLET PO PRN (09:39)
[2021-08-29] MEDS: IBUPROFEN 400 MG TABLET PO PRN (09:39)
[2021-08-29 16:03] VITALS: BP 128/73
[2021-08-29] MEDS: ACETAMINOPHEN 325 MG TABLET PO PRN (16:03)
[2021-08-29 16:14] VITALS: BP 130/75
[2021-08-29 17:03] VITALS: BP 130/72
[2021-08-29] MEDS: QUEtiapine FUMARATE 200 MG TABLET PO SCH (20:14)
[2021-08-29 20:48] LABS: APPEARANCE,URINE CLEAR (CLEAR); BILIRUBIN,URINE NEGATIVE (NEGATIVE); GLUCOSE, URINE (UA) NEGATIVE (NEGATIVE); KETONES,URINE NEGATIVE (NEGATIVE); LEUKOCYTE ESTERASE ,URINE NEGATIVE (NEGATIVE); NITRATE,URINE NEGATIVE (NEGATIVE); OCCULT BLOOD,URINE NEGATIVE (NEGATIVE); PH,URINE 6.5 (5.0-8.0); PROTEIN,URINE NEGATIVE (NEGATIVE); UROBILINOGEN,URINE 0.2 mg/dL (<=1.0)
[2021-08-30] MEDS: AmLODIPine BESYLATE 10 MG TABLET PO SCH (08:48)
[2021-08-30] MEDS: ESCITALOPRAM OXALATE 10 MG TABLET PO SCH (08:48)
[2021-08-30 09:13] VITALS: BP 130/77
[2021-08-30] MEDS: IBUPROFEN 400 MG TABLET PO PRN (09:13)
[2021-08-30] MEDS: LORazepam 2 MG TABLET PO PRN ×2 (14:04→18:35)
[2021-08-30 16:19] VITALS: BP 138/79
[2021-08-30] MEDS: QUEtiapine FUMARATE 200 MG TABLET PO SCH (20:08)
[2021-08-31] MEDS: AmLODIPine BESYLATE 10 MG TABLET PO SCH (08:25)
[2021-08-31] MEDS: ESCITALOPRAM OXALATE 10 MG TABLET PO SCH (08:25)
[2021-08-31 09:00] VITALS: BP 114/67
[2021-08-31 13:52] VITALS: BP 116/68
[2021-08-31] MEDS: IBUPROFEN 400 MG TABLET PO PRN (13:52)
[2021-08-31 14:53] VITALS: BP 119/69
[2021-08-31] MEDS: LORazepam 2 MG TABLET PO PRN (16:56)
[2021-08-31 18:51] VITALS: BP 146/70
[2021-08-31] MEDS: QUEtiapine FUMARATE 200 MG TABLET PO SCH (20:01)
[2021-09-01] MEDS: AmLODIPine BESYLATE 10 MG TABLET PO SCH (08:40)
[2021-09-01] MEDS: ESCITALOPRAM OXALATE 10 MG TABLET PO SCH (08:40)
[2021-09-01 09:00] VITALS: BP 114/76
[2021-09-01] MEDS: ACETAMINOPHEN 325 MG TABLET PO PRN (11:48)
[2021-09-01 11:52] VITALS: BP 104/68
[2021-09-01 12:57] VITALS: BP 112/72
[2021-09-01] MEDS: HALOPERIDOL 5 MG TABLET PO PRN (15:52)
[2021-09-01 16:23] VITALS: BP 110/71
[2021-09-01] MEDS: IBUPROFEN 400 MG TABLET PO PRN (16:23)
[2021-09-01 16:37] VITALS: BP 104/74
[2021-09-01 17:23] VITALS: BP 110/72
[2021-09-01] MEDS: QUEtiapine FUMARATE 200 MG TABLET PO SCH (20:02)
[2021-09-02 05:00] VITALS: BP 113/73
[2021-09-02] MEDS: ESCITALOPRAM OXALATE 10 MG TABLET PO SCH (08:51)
[2021-09-02] MEDS: AmLODIPine BESYLATE 10 MG TABLET PO SCH (08:51)
[2021-09-02 08:52] VITALS: BP 126/70
[2021-09-02] MEDS: IBUPROFEN 400 MG TABLET PO PRN (08:52)
[2021-09-02 09:52] VITALS: BP_SYST 114; BP_DIAS 51; BP_DIAS 61
[2021-09-02] MEDS: LORazepam 2 MG TABLET PO PRN (11:05)
[2021-09-02 15:10] LABS: COVID AG,FIA SOURCE NASAL SWAB
[2021-09-02] MEDS: ZOLPIDEM TARTRATE 10 MG TABLET PO PRN (20:30)
[2021-09-02] MEDS: QUEtiapine FUMARATE 200 MG TABLET PO SCH (20:30)
[2021-09-03] MEDS: AmLODIPine BESYLATE 10 MG TABLET PO SCH (09:01)
[2021-09-03] MEDS: ESCITALOPRAM OXALATE 10 MG TABLET PO SCH (09:01)
[2021-09-03 09:04] VITALS: BP 120/69
[2021-09-03] MEDS: IBUPROFEN 400 MG TABLET PO PRN (09:04)
[2021-09-03] MEDS: LORazepam 2 MG TABLET PO PRN ×2 (10:13→17:25)
[2021-09-03 16:06] VITALS: BP 124/70
[2021-09-03] MEDS: HALOPERIDOL 5 MG TABLET PO PRN (16:07)
[2021-09-03] MEDS: QUEtiapine FUMARATE 200 MG TABLET PO SCH (20:05)
[2021-09-03] MEDS ORDERED: QUET200T PO (21:06)
[2021-09-03] MEDS ORDERED: AMLO-258 PO (21:06)
[2021-09-03] MEDS ORDERED: ESCI10 PO (21:06)
[2021-09-04] MEDS: AmLODIPine BESYLATE 10 MG TABLET PO SCH (08:05)
[2021-09-04] MEDS: LORazepam 2 MG TABLET PO PRN (08:05)
[2021-09-04] MEDS: ESCITALOPRAM OXALATE 10 MG TABLET PO SCH (08:05)
[2021-09-04 08:28] VITALS: BP 131/73
== END 2021-09-04 10:00 | DRG 885 ==
LOC: 3EX 19:45
PROVIDERS: ADMIT Psychiatry & Neurology Psychiatry; ATTEND Psychiatry & Neurology Psychiatry
DX: F25.1 Schizoaffective disorder, depressive type (principal); R45.851 Suicidal ideations; F10.10 Alcohol abuse, uncomplicated; G62.9 Polyneuropathy, unspecified; I10 Essential (primary) hypertension; E66.9 Obesity, unspecified; F99 Mental disorder, not otherwise specified; Z20.822 Contact with and (suspected) exposure to COVID-19; N49.2 Inflammatory disorders of scrotum; I48.91 Unspecified atrial fibrillation; Z59.00 Homelessness unspecified; Z79.899 Other long term (current) drug therapy; Z68.31 Body mass index [BMI] 31.0-31.9, adult
CPT/HCPCS: 80053; 81003; 83036; 84439; 84443; 84484; 85025; 87081; 93005; 97110; 97116; 97162; 97166; 97530; 97535; G0378; Q9967

== ENCOUNTER 2021-10-14 08:10 | Inpatient (IN) | payer MEDICARE, OTHER ==
[~2021-10-14] VITALS: Ht 180.3 cm; Wt 118.5 kg
[~2021-10-14 08:10] MED LIST changes: -GABA-1181 PO; -MULT-1239 PO
[2021-10-14 09:00] LABS: COVID AG,FIA SOURCE NASAL SWAB
[2021-10-14 09:03] LABS: BASOPHILS % (AUTO) 0.7 % (0.0-2.0); EOSINOPHILS % (AUTO) 2.8 % (1.0-6.0); HEMATOCRIT 39.9 % (41-53); HEMOGLOBIN 13.6 g/dL (13.5-17.5); LYMPHOCYTES # (AUTO) 1.7 K/uL (1.0-4.8); LYMPHOCYTES % (AUTO) 26.8 % (22.0-44.0); MEAN CORPUSCULAR HGB CONC 33.9 G/dL (31.0-37.0); MEAN CORPUSCULAR VOLUME 94 fL (80-100); MONOCYTES # (AUTO) 0.6 K/uL (0.1-1.0); MONOCYTES % (AUTO) 10.3 % (2.0-9.0); NEUTROPHILS # (AUTO) 3.7 K/uL (1.8-7.7); NEUTROPHILS % (AUTO) 59.4 % (40.0-70.0); RED BLOOD CELL COUNT(AUTO) 4.24 MIL/uL (4.50-5.90)
[2021-10-14 09:07] LABS: PLATELET COUNT (AUTO) 204 K/uL (150-450)
[2021-10-14 09:18] LABS: D-DIMER 0.47 mg/L FEU (0.00-0.50); PROTHROMBIN TIME 70.4 SEC (9.4-11.6)
[2021-10-14 09:20] LABS: ANION GAP 10 mmol/L (8-16); CALCIUM, TOTAL 8.7 mg/dL (8.8-10.5); CARBON DIOXIDE 29 mmol/L (22-29); CHLORIDE 104 mmol/L (98-107); CREATININE 0.68 mg/dL (0.60-1.30); GLOMERULAR FILTR. RATE CALC > 60 mL/min (>60); GLUCOSE,RANDOM 92 mg/dL (70-110); POTASSIUM 3.7 mmol/L (3.5-5.1); SODIUM SERUM 143 mmol/L (136-145); UREA NITROGEN, BLOOD 19 mg/dL (7-18)
[2021-10-14 09:22] LABS: B-TYPE NATRIURETIC PEPTIDE 11 pg/mL (0-100)
[2021-10-14 09:34] LABS: INR 7.9 (0.9-1.1)
[2021-10-14 09:44] LABS: ALANINE AMINOTRANSFERASE 51 U/L (12-78); ALBUMIN 3.8 g/dL (3.4-5.0); ALKALINE PHOSPHATASE 101 U/L (46-116); ASPARTATE AMINOTRANSFERASE 50 U/L (15-37); BILIRUBIN,TOTAL 0.5 mg/dL (0.1-1.0); TOTAL PROTEIN, SERUM 7.6 g/dL (6.4-8.2)
[2021-10-14 09:54] LABS: CREATINE KINASE, TOTAL ONLY 1358 U/L (39-308)
[2021-10-14] MEDS ORDERED: CefTRIAXone 1 GM/DEXTROSE 50 ML IV ONE (10:15)
[2021-10-14] MEDS ORDERED: FUROSEMIDE 40 MG/4 ML VIAL IVP ONE (10:15)
[2021-10-14] MEDS ORDERED: NITROGLYCERIN 2% (1 GM=INCH) PACKET TP ONE (10:15)
[2021-10-14] MEDS ORDERED: 0.9% SODIUM CHLORIDE 10 ML SYRINGE IVP PRN (10:45)
[2021-10-14 11:39] LABS: APPEARANCE,URINE CLEAR (CLEAR); BILIRUBIN,URINE NEGATIVE (NEGATIVE); GLUCOSE, URINE (UA) NEGATIVE (NEGATIVE); LEUKOCYTE ESTERASE ,URINE NEGATIVE (NEGATIVE); NITRATE,URINE NEGATIVE (NEGATIVE); OCCULT BLOOD,URINE NEGATIVE (NEGATIVE); PH,URINE 5.5 (5.0-8.0); PROTEIN,URINE 30-70 (NEGATIVE); SPECIFIC GRAVITIY, URINE 1.024 (1.003-1.030); UROBILINOGEN,URINE <=1.0 mg/dL (<=1.0)
[2021-10-14 11:42] LABS: AMPHET/METH SCREEN,URINE POSITIVE (NEGATIVE); BARBITURATE SCREEN, URINE NEGATIVE (NEGATIVE); BENZODIAZEPINES SCREEN,URINE POSITIVE (NEGATIVE); CANNABINOID SCREEN,URINE NEGATIVE (NEGATIVE); COCAINE SCREEN,URINE NEGATIVE (NEGATIVE); METHADONE SCREEN, URINE NEGATIVE (NEGATIVE); OPIATE SCREEN,URINE NEGATIVE (NEGATIVE)
[2021-10-14 11:45] LABS: PHENCYCLIDINE SCREEN,URINE NEGATIVE (NEGATIVE)
[2021-10-14 12:04] VITALS: BP 147/89
[2021-10-14 12:04] LABS: BACTERIA,URINE None Seen /HPF (None Seen); RBC,URINE 0-2 /HPF (0-2); WBC,URINE 0-2 /HPF (0-5)
[2021-10-14 15:24] VITALS: BP 132/80
[2021-10-14] MEDS ORDERED: IPRATROPIUM BROMIDE 0.5 MG/2.5 ML NEB SOLUTION NEB PRN (18:30)
[2021-10-14] MEDS ORDERED: AmLODIPine BESYLATE 10 MG TABLET PO ONE (18:30)
[2021-10-14] MEDS ORDERED: MORPHINE SULFATE 2 MG/ML SYRINGE IVP PRN (18:30)
[2021-10-14] MEDS ORDERED: ACETAMINOPHEN 325 MG TABLET PO PRN (18:30)
[2021-10-14] MEDS ORDERED: ONDANSETRON HCL 4 MG/2 ML VIAL IVP PRN (18:30)
[2021-10-14] MEDS ORDERED: MAGNESIUM HYDROXIDE SUSPENSION 30 ML UDCUP PO PRN (18:30)
[2021-10-14] MEDS ORDERED: ZOLPIDEM TARTRATE 5 MG TABLET PO PRN (18:30)
[2021-10-14] MEDS ORDERED: ALBUTEROL SULFATE 2.5 MG/0.5 ML NEB SOLUTION NEB PRN (18:30)
[2021-10-14] MEDS ORDERED: BISACODYL 10 MG RECTAL RECTAL SUPPOSITORY PR PRN (18:30)
[2021-10-14] MEDS ORDERED: VANCOMYCIN HCL 1.5 GM in DEXTROSE 5%-WATER 250 ML IV ONE (20:00)
[2021-10-14] MEDS ORDERED: SODIUM CHLORIDE 0.9% 250 ML IV ONE (20:52)
[2021-10-14] MEDS: DOCUSATE SODIUM 100 MG CAPSULE PO SCH (21:08)
[2021-10-14] MEDS: HYDROCODONE/ACETAMINOPHEN 5-325 MG TABLET PO PRN (21:08)
[2021-10-14] MEDS: QUEtiapine FUMARATE 200 MG TABLET PO SCH (21:12)
[2021-10-14 21:54] VITALS: BP 108/87
[2021-10-15] VITALS (7 sets, daily range): BP systolic 106–142; BP diastolic 64–76
[2021-10-15] MEDS: HEPARIN SODIUM,PORCINE 5,000 UNITS/ML VIAL SQ SCH ×3 (01:26→15:47)
[2021-10-15 06:19] LABS: ANION GAP 4 mmol/L (8-16); CALCIUM, TOTAL 8.1 mg/dL (8.8-10.5); CARBON DIOXIDE 32 mmol/L (22-29); CHLORIDE 105 mmol/L (98-107); CREATININE 0.59 mg/dL (0.60-1.30); GLUCOSE,RANDOM 111 mg/dL (70-110); POTASSIUM 3.2 mmol/L (3.5-5.1); SODIUM SERUM 141 mmol/L (136-145); UREA NITROGEN, BLOOD 17 mg/dL (7-18)
[2021-10-15 06:26] LABS: GLOMERULAR FILTR. RATE CALC > 60 mL/min (>60)
[2021-10-15] MEDS ORDERED: VANCOMYCIN HCL 1.25 GM in DEXTROSE 5%-WATER 250 ML IV SCH (08:00)
[2021-10-15] MEDS: DOCUSATE SODIUM 100 MG CAPSULE PO SCH ×2 (08:55→20:21)
[2021-10-15] MEDS ORDERED: AmLODIPine BESYLATE 10 MG TABLET PO SCH (09:00)
[2021-10-15] MEDS: PANTOPRAZOLE SODIUM 40 MG/VIAL IVP SCH (09:00)
[2021-10-15] MEDS: AmLODIPine BESYLATE 10 MG TABLET PO SCH (09:01)
[2021-10-15] MEDS: FUROSEMIDE 40 MG/4 ML VIAL IVP SCH (09:01)
[2021-10-15] MEDS: ESCITALOPRAM OXALATE 10 MG TABLET PO SCH (09:01)
[2021-10-15] MEDS: HYDROCODONE/ACETAMINOPHEN 5-325 MG TABLET PO PRN ×2 (14:40→20:20)
[2021-10-15] MEDS: VANCOMYCIN HCL 1.25 GM in DEXTROSE 5%-WATER 250 ML IV SCH (15:47)
[2021-10-15] MEDS ORDERED: POTASSIUM CHLORIDE 20 MEQ ER TABLET PO ONE (17:00)
[2021-10-15] MEDS: QUEtiapine FUMARATE 200 MG TABLET PO SCH (20:21)
[2021-10-16] MEDS: VANCOMYCIN HCL 1.25 GM in DEXTROSE 5%-WATER 250 ML IV SCH ×3 (00:59→16:41)
[2021-10-16] MEDS: HEPARIN SODIUM,PORCINE 5,000 UNITS/ML VIAL SQ SCH ×3 (01:00→16:41)
[2021-10-16 04:33] VITALS: BP 126/55
[2021-10-16 07:29] LABS: ANION GAP 1 mmol/L (8-16); CALCIUM, TOTAL 8.1 mg/dL (8.8-10.5); CARBON DIOXIDE 34 mmol/L (22-29); CHLORIDE 100 mmol/L (98-107); CREATININE 0.69 mg/dL (0.60-1.30); GLOMERULAR FILTR. RATE CALC > 60 mL/min (>60); GLUCOSE,RANDOM 122 mg/dL (70-110); POTASSIUM 3.6 mmol/L (3.5-5.1); SODIUM SERUM 135 mmol/L (136-145); UREA NITROGEN, BLOOD 11 mg/dL (7-18); VANCOMYCIN,RANDOM 16.5 mcg/mL (25.0-50.0)
[2021-10-16 07:32] VITALS: BP 118/72
[2021-10-16] MEDS: ESCITALOPRAM OXALATE 10 MG TABLET PO SCH (08:02)
[2021-10-16] MEDS: AmLODIPine BESYLATE 10 MG TABLET PO SCH (08:02)
[2021-10-16] MEDS: DOCUSATE SODIUM 100 MG CAPSULE PO SCH ×2 (08:02→20:28)
[2021-10-16] MEDS: FUROSEMIDE 40 MG/4 ML VIAL IVP SCH (08:03)
[2021-10-16] MEDS: PANTOPRAZOLE SODIUM 40 MG/VIAL IVP SCH (08:03)
[2021-10-16 11:14] VITALS: BP 122/78
[2021-10-16] MEDS: HYDROCODONE/ACETAMINOPHEN 5-325 MG TABLET PO PRN ×2 (14:00→18:51)
[2021-10-16 15:02] VITALS: BP 139/72
[2021-10-16 19:42] VITALS: BP 128/82
[2021-10-16] MEDS: QUEtiapine FUMARATE 200 MG TABLET PO SCH (20:28)
[2021-10-17] MEDS: HEPARIN SODIUM,PORCINE 5,000 UNITS/ML VIAL SQ SCH ×2 (00:52→08:59)
[2021-10-17] MEDS: VANCOMYCIN HCL 1.25 GM in DEXTROSE 5%-WATER 250 ML IV SCH ×2 (01:01→08:59)
[2021-10-17 05:21] VITALS: BP 122/77
[2021-10-17] MEDS: HYDROCODONE/ACETAMINOPHEN 5-325 MG TABLET PO PRN ×3 (05:21→16:43)
[2021-10-17 08:00] VITALS: BP 125/67
[2021-10-17 08:44] LABS: ANION GAP 2 mmol/L (8-16); CALCIUM, TOTAL 8.4 mg/dL (8.8-10.5); CARBON DIOXIDE 34 mmol/L (22-29); CHLORIDE 99 mmol/L (98-107); CREATININE 0.57 mg/dL (0.60-1.30); GLUCOSE,RANDOM 80 mg/dL (70-110); POTASSIUM 4.1 mmol/L (3.5-5.1); SODIUM SERUM 135 mmol/L (136-145); UREA NITROGEN, BLOOD 12 mg/dL (7-18)
[2021-10-17 08:47] LABS: GLOMERULAR FILTR. RATE CALC > 60 mL/min (>60)
[2021-10-17] MEDS: AmLODIPine BESYLATE 10 MG TABLET PO SCH (08:58)
[2021-10-17] MEDS: ESCITALOPRAM OXALATE 10 MG TABLET PO SCH (08:58)
[2021-10-17] MEDS: DOCUSATE SODIUM 100 MG CAPSULE PO SCH (08:58)
[2021-10-17] MEDS: PANTOPRAZOLE SODIUM 40 MG/VIAL IVP SCH (08:59)
[2021-10-17] MEDS: FUROSEMIDE 40 MG/4 ML VIAL IVP SCH (08:59)
[2021-10-17 13:11] LABS: BASOPHILS % (AUTO) 2.6 % (0.0-2.0); HEMATOCRIT 40.6 % (41-53); HEMOGLOBIN 13.8 g/dL (13.5-17.5); LYMPHOCYTES # (AUTO) 1.1 K/uL (1.0-4.8); LYMPHOCYTES % (AUTO) 32.7 % (22.0-44.0); MEAN CORPUSCULAR HEMOGLOBIN 32.2 pg (26.0-34.0); MEAN CORPUSCULAR HGB CONC 34.1 G/dL (31.0-37.0); MEAN CORPUSCULAR VOLUME 95 fL (80-100); MONOCYTES # (AUTO) 0.3 K/uL (0.1-1.0); NEUTROPHILS # (AUTO) 1.7 K/uL (1.8-7.7); NEUTROPHILS % (AUTO) 52.7 % (40.0-70.0); PLATELET COUNT (AUTO) 178 K/uL (150-450); RED BLOOD CELL COUNT(AUTO) 4.29 MIL/uL (4.50-5.90); RED CELL DISTRIBUTION WIDTH 13.8 % (11.5-14.5)
[2021-10-17 13:35] LABS: CREATINE KINASE, TOTAL ONLY 235 U/L (39-308)
[2021-10-17 16:07] VITALS: BP 135/61
[2021-10-17] MEDS ORDERED: HEPA500018 SQ (18:51)
[2021-10-17] MEDS ORDERED: ACET-2247 PO (18:53)
[2021-10-17] MEDS ORDERED: VANC125C6 IV (18:57)
[2021-10-17] MEDS ORDERED: ZOLP-280 PO (18:59)
[2021-10-17] MEDS ORDERED: PANT-31 PO (18:59)
[2021-10-17] MEDS ORDERED: HYDR-4723 PO (18:59)
[2021-10-17] MEDS ORDERED: FURO20 PO (18:59)
== END 2021-10-17 17:20 | DRG 603 ==
LOC: EMS 08:18 → 5S 11:05 → 6S 10-16 18:15
PROVIDERS: ADMIT Hospitalist; ATTEND Hospitalist
DX: L03.119 Cellulitis of unspecified part of limb (principal); E87.1 Hypo-osmolality and hyponatremia; E87.6 Hypokalemia; Z20.822 Contact with and (suspected) exposure to COVID-19; J44.9 Chronic obstructive pulmonary disease, unspecified; I10 Essential (primary) hypertension; F25.9 Schizoaffective disorder, unspecified; F32.A Depression, unspecified; Z72.0 Tobacco use; Z91.14 Patient's other noncompliance with medication regimen; Z91.19 Patient's noncompliance with other medical treatment and regimen; Z79.899 Other long term (current) drug therapy
CPT/HCPCS: 71045; 80048; 80053; 80202; 81001; 82550; 83880; 84484; 85025; 85379; 85610; 87040; 93005; 99285; C9113; J0696; J1644; J1940; J3370; J7050; J7060; 36415-L1; 36415-TC

== ENCOUNTER 2021-12-04 17:15 | Inpatient (IN) | payer MEDICARE, OTHER ==
[~2021-12-04] VITALS: Ht 182.9 cm; Wt 113.0 kg
[~2021-12-04 17:15] MED LIST changes: +ACET-2247 PO; +FURO20 PO; +HEPA500018 SQ; +HYDR-4723 PO; +PANT-31 PO; +VANC125C6 IV; +ZOLP-280 PO
[2021-12-04] MEDS ORDERED: ONDANSETRON HCL 4 MG/2 ML VIAL IVP ONE (18:15)
[2021-12-04] MEDS ORDERED: VANCOMYCIN 1GM/WATER(PEG/NADA) 200 ML IV ONE ×2 (18:15→23:00)
[2021-12-04] MEDS ORDERED: MORPHINE SULFATE 4 MG/ML SYRINGE IVP ONE (18:15)
[2021-12-04 18:54] LABS: BASOPHILS % (AUTO) 0.4 % (0.0-2.0); EOSINOPHILS % (AUTO) 1.6 % (1.0-6.0); HEMATOCRIT 41.6 % (41-53); HEMOGLOBIN 14.3 g/dL (13.5-17.5); LYMPHOCYTES # (AUTO) 1.4 K/uL (1.0-4.8); LYMPHOCYTES % (AUTO) 23.9 % (22.0-44.0); MEAN CORPUSCULAR HEMOGLOBIN 32.6 pg (26.0-34.0); MEAN CORPUSCULAR HGB CONC 34.4 G/dL (31.0-37.0); MEAN CORPUSCULAR VOLUME 95 fL (80-100); MONOCYTES # (AUTO) 0.3 K/uL (0.1-1.0); MONOCYTES % (AUTO) 5.8 % (2.0-9.0); NEUTROPHILS # (AUTO) 4.1 K/uL (1.8-7.7); NEUTROPHILS % (AUTO) 68.3 % (40.0-70.0); PLATELET COUNT (AUTO) 191 K/uL (150-450); RED BLOOD CELL COUNT(AUTO) 4.39 MIL/uL (4.50-5.90); RED CELL DISTRIBUTION WIDTH 14.8 % (11.5-14.5)
[2021-12-04 19:04] LABS: ANION GAP 7 mmol/L (8-16); CALCIUM, TOTAL 8.4 mg/dL (8.8-10.5); CARBON DIOXIDE 31 mmol/L (22-29); CHLORIDE 103 mmol/L (98-107); CREATININE 0.61 mg/dL (0.60-1.30); GLOMERULAR FILTR. RATE CALC > 60 mL/min (>60); GLUCOSE,RANDOM 91 mg/dL (70-110); POTASSIUM 3.7 mmol/L (3.5-5.1); SODIUM SERUM 141 mmol/L (136-145); UREA NITROGEN, BLOOD 9 mg/dL (7-18)
[2021-12-04 19:10] LABS: ALANINE AMINOTRANSFERASE 40 U/L (12-78); ALBUMIN 3.6 g/dL (3.4-5.0); ALKALINE PHOSPHATASE 102 U/L (46-116); ASPARTATE AMINOTRANSFERASE 30 U/L (15-37); BILIRUBIN,TOTAL 0.2 mg/dL (0.1-1.0); TOTAL PROTEIN, SERUM 7.1 g/dL (6.4-8.2)
[2021-12-04 19:17] LABS: LACTIC ACID 1.2 mmol/L (0.4-2.0)
[2021-12-04 19:18] LABS: COVID AG,FIA SOURCE NASAL SWAB
[2021-12-04 19:22] LABS: B-TYPE NATRIURETIC PEPTIDE 43 pg/mL (0-100)
[2021-12-04 19:27] LABS: PROTHROMBIN TIME 10.4 SEC (9.4-11.6)
[2021-12-04 19:40] LABS: D-DIMER 0.26 mg/L FEU (0.00-0.50)
[2021-12-04 20:10] LABS: ERYTHROCYTE SEDIMENTATION RATE 9 MM/HR (0-15)
[2021-12-04] MEDS ORDERED: ONDANSETRON HCL 4 MG/2 ML VIAL IVP PRN (20:45)
[2021-12-04] MEDS: SODIUM CHLORIDE 0.9% 1,000 ML IV SCH (20:54)
[2021-12-04] MEDS ORDERED: LORazepam 2 MG TABLET PO PRN (22:30)
[2021-12-04] MEDS ORDERED: HydrALAZINE HCL 20 MG/ML VIAL IVP ONE (23:45)
[2021-12-04] MEDS: HEPARIN SODIUM,PORCINE 5,000 UNITS/ML VIAL SQ SCH (23:46)
[2021-12-05] VITALS (8 sets, daily range): BP systolic 124–151; BP diastolic 64–95
[2021-12-05] MEDS: ACETAMINOPHEN 325 MG TABLET PO PRN (01:50)
[2021-12-05] MEDS ORDERED: HYDROCODONE/ACETAMINOPHEN 5-325 MG TABLET PO PRN (02:45)
[2021-12-05] MEDS ORDERED: LORazepam 2 MG TABLET PO PRN (07:00)
[2021-12-05 08:23] LABS: ANION GAP 6 mmol/L (8-16); CARBON DIOXIDE 30 mmol/L (22-29); CHLORIDE 102 mmol/L (98-107); CREATININE 0.55 mg/dL (0.60-1.30); GLUCOSE,RANDOM 96 mg/dL (70-110); SODIUM SERUM 138 mmol/L (136-145); UREA NITROGEN, BLOOD 8 mg/dL (7-18)
[2021-12-05 08:24] LABS: GLOMERULAR FILTR. RATE CALC > 60 mL/min (>60)
[2021-12-05] MEDS: VANCOMYCIN HCL 1.5 GM in DEXTROSE 5%-WATER 250 ML IV SCH ×3 (08:29→23:18)
[2021-12-05] MEDS: NICOTINE 14 MG/24 HOUR PATCH TD SCH (08:30)
[2021-12-05] MEDS: THIAMINE 100 MG/ML 2 ML VIAL IVP SCH (08:30)
[2021-12-05] MEDS: FUROSEMIDE 20 MG TABLET PO SCH (08:31)
[2021-12-05] MEDS: HEPARIN SODIUM,PORCINE 5,000 UNITS/ML VIAL SQ SCH ×4 (08:31→23:18)
[2021-12-05] MEDS: MULTIVITAMINS WITH MINERALS, THERAPEUTIC TABLET PO SCH ×2 (08:31→23:18)
[2021-12-05] MEDS: ESCITALOPRAM OXALATE 10 MG TABLET PO SCH (08:31)
[2021-12-05] MEDS: AmLODIPine BESYLATE 10 MG TABLET PO SCH (08:31)
[2021-12-05] MEDS: MORPHINE SULFATE 2 MG/ML SYRINGE IVP PRN ×2 (08:49→18:05)
[2021-12-05] MEDS: PANTOPRAZOLE SODIUM 40 MG DR TABLET PO SCH (11:49)
[2021-12-05] MEDS: SODIUM CHLORIDE 0.9% 1,000 ML IV SCH (13:53)
[2021-12-05] MEDS ORDERED: ZOLPIDEM TARTRATE 5 MG TABLET PO SCH (21:00)
[2021-12-05] MEDS: QUEtiapine FUMARATE 200 MG TABLET PO SCH (23:17)
[2021-12-06 01:31] LABS: ABG BASE EXCESS 6.8 mmol/L (-2.0-3.0); ABG CARBOXYHEMOGLOBIN 1.4 % (0.0-1.5); ABG HCO3 29.4 mmol/L (22.0-26.0); ABG METHEMOGLOBIN 0.3 % (0.0-1.5); ABG OXYGEN CONTENT 20.3 mL/dL (15.0-23.0); ABG OXYGEN SATURATION 95.5 % (95.0-98.0); ABG OXYHEMOGLOBIN 93.9 % (94.0-100.0); ABG PCO2 50 mmHg (35-45); ABG PH 7.414 (7.35-7.450); ABG TOTAL HEMOGLOBIN 15.4 G/dL (12.0-18.0); PO2, ARTERIAL BG 74.8 mmHg (79.0-87.0); SOURCE, BLOOD GAS ARTERIAL; TEMPERATURE, FAHRENHEIT, BG 98.6 FAHREN (96.0-98.6)
[2021-12-06 01:32] LABS: O2 DEVICE,BLOOD GAS ROOM AIR (ROOM AIR); SITE, BLOOD GAS RT RADIAL
[2021-12-06 03:52] VITALS: BP 137/77
[2021-12-06 07:37] LABS: ANION GAP 4 mmol/L (8-16); CALCIUM, TOTAL 8.5 mg/dL (8.8-10.5); CARBON DIOXIDE 32 mmol/L (22-29); CHLORIDE 102 mmol/L (98-107); CREATININE 0.53 mg/dL (0.60-1.30); GLUCOSE,RANDOM 98 mg/dL (70-110); POTASSIUM 3.7 mmol/L (3.5-5.1); SODIUM SERUM 138 mmol/L (136-145); UREA NITROGEN, BLOOD 9 mg/dL (7-18); VANCOMYCIN,RANDOM 19.2 mcg/mL (25.0-50.0)
[2021-12-06 07:41] LABS: GLOMERULAR FILTR. RATE CALC > 60 mL/min (>60)
[2021-12-06 08:10] VITALS: BP 137/87
[2021-12-06] MEDS: FUROSEMIDE 20 MG TABLET PO SCH ×2 (09:00→09:39)
[2021-12-06] MEDS: HEPARIN SODIUM,PORCINE 5,000 UNITS/ML VIAL SQ SCH ×3 (09:38→23:08)
[2021-12-06] MEDS: THIAMINE 100 MG/ML 2 ML VIAL IVP SCH (09:38)
[2021-12-06] MEDS: VANCOMYCIN HCL 1.5 GM in DEXTROSE 5%-WATER 250 ML IV SCH (09:38)
[2021-12-06] MEDS: AmLODIPine BESYLATE 10 MG TABLET PO SCH ×3 (09:39→15:24)
[2021-12-06] MEDS: MULTIVITAMINS WITH MINERALS, THERAPEUTIC TABLET PO SCH ×4 (09:39→23:08)
[2021-12-06] MEDS: ESCITALOPRAM OXALATE 10 MG TABLET PO SCH ×3 (09:39→15:24)
[2021-12-06] MEDS: NICOTINE 14 MG/24 HOUR PATCH TD SCH (09:39)
[2021-12-06 11:22] VITALS: BP 136/86
[2021-12-06] MEDS: PANTOPRAZOLE SODIUM 40 MG DR TABLET PO SCH (12:40)
[2021-12-06 15:25] VITALS: BP 151/82
[2021-12-06] MEDS: MORPHINE SULFATE 2 MG/ML SYRINGE IVP PRN (15:30)
[2021-12-06] MEDS: VANCOMYCIN HCL 1.25 GM in DEXTROSE 5%-WATER 250 ML IV SCH ×2 (17:00→23:09)
[2021-12-06 17:24] VITALS: BP 137/76
[2021-12-06] MEDS ORDERED: GABA-529 PO (19:39)
[2021-12-06] MEDS ORDERED: PANT20TA18 PO (19:39)
[2021-12-06] MEDS ORDERED: ATOR20TA65 PO (19:40)
[2021-12-06] MEDS ORDERED: LISI10TA24 PO (19:40)
[2021-12-06] MEDS ORDERED: CLOP75TA32 PO (19:40)
[2021-12-06] MEDS ORDERED: ICOS1CAP PO (19:40)
[2021-12-06 20:14] VITALS: BP 133/75
[2021-12-06] MEDS: QUEtiapine FUMARATE 200 MG TABLET PO SCH (23:08)
[2021-12-07 04:59] VITALS: BP 123/69
[2021-12-07 07:00] LABS: ANION GAP 7 mmol/L (8-16); CALCIUM, TOTAL 8.5 mg/dL (8.8-10.5); CARBON DIOXIDE 29 mmol/L (22-29); CHLORIDE 102 mmol/L (98-107); CREATININE 0.58 mg/dL (0.60-1.30); GLUCOSE,RANDOM 94 mg/dL (70-110); POTASSIUM 3.8 mmol/L (3.5-5.1); SODIUM SERUM 138 mmol/L (136-145); UREA NITROGEN, BLOOD 12 mg/dL (7-18)
[2021-12-07] MEDS ORDERED: LORazepam 1 MG TABLET PO PRN (07:00)
[2021-12-07 07:01] LABS: GLOMERULAR FILTR. RATE CALC > 60 mL/min (>60)
[2021-12-07] MEDS: HEPARIN SODIUM,PORCINE 5,000 UNITS/ML VIAL SQ SCH ×4 (09:23→23:55)
[2021-12-07] MEDS: THIAMINE 100 MG/ML 2 ML VIAL IVP SCH (09:23)
[2021-12-07 09:24] VITALS: BP 146/79
[2021-12-07] MEDS: VANCOMYCIN HCL 1.25 GM in DEXTROSE 5%-WATER 250 ML IV SCH ×3 (09:24→23:55)
[2021-12-07] MEDS: LORazepam 1 MG TABLET PO SCH ×5 (09:24→21:00)
[2021-12-07] MEDS: MULTIVITAMINS WITH MINERALS, THERAPEUTIC TABLET PO SCH ×3 (09:24→23:55)
[2021-12-07] MEDS: ESCITALOPRAM OXALATE 10 MG TABLET PO SCH (09:24)
[2021-12-07] MEDS: FUROSEMIDE 20 MG TABLET PO SCH (09:24)
[2021-12-07] MEDS: AmLODIPine BESYLATE 10 MG TABLET PO SCH (09:24)
[2021-12-07] MEDS: PANTOPRAZOLE SODIUM 40 MG DR TABLET PO SCH (09:25)
[2021-12-07] MEDS: NICOTINE 14 MG/24 HOUR PATCH TD SCH (09:25)
[2021-12-07] MEDS: MORPHINE SULFATE 2 MG/ML SYRINGE IVP PRN (13:24)
[2021-12-07 16:12] VITALS: BP 127/68
[2021-12-07 20:01] VITALS: BP 137/75
[2021-12-07] MEDS: QUEtiapine FUMARATE 200 MG TABLET PO SCH ×2 (20:37→23:55)
[2021-12-07 23:35] VITALS: BP 123/58
[2021-12-08 04:14] VITALS: BP 117/77
[2021-12-08] MEDS ORDERED: LORazepam 1 MG TABLET PO PRN (07:00)
[2021-12-08 07:16] LABS: ANION GAP 7 mmol/L (8-16); CALCIUM, TOTAL 8.9 mg/dL (8.8-10.5); CARBON DIOXIDE 31 mmol/L (22-29); CHLORIDE 99 mmol/L (98-107); CREATININE 0.59 mg/dL (0.60-1.30); GLUCOSE,RANDOM 95 mg/dL (70-110); POTASSIUM 4.4 mmol/L (3.5-5.1); SODIUM SERUM 137 mmol/L (136-145); UREA NITROGEN, BLOOD 16 mg/dL (7-18)
[2021-12-08 07:27] LABS: GLOMERULAR FILTR. RATE CALC > 60 mL/min (>60)
[2021-12-08] MEDS: HEPARIN SODIUM,PORCINE 5,000 UNITS/ML VIAL SQ SCH ×3 (08:00→15:45)
[2021-12-08 08:42] VITALS: BP 132/73
[2021-12-08] MEDS: NICOTINE 14 MG/24 HOUR PATCH TD SCH (09:03)
[2021-12-08] MEDS: MULTIVITAMINS WITH MINERALS, THERAPEUTIC TABLET PO SCH (09:06)
[2021-12-08] MEDS: VANCOMYCIN HCL 1.25 GM in DEXTROSE 5%-WATER 250 ML IV SCH ×2 (09:06→15:45)
[2021-12-08] MEDS: AmLODIPine BESYLATE 10 MG TABLET PO SCH (09:06)
[2021-12-08] MEDS: FUROSEMIDE 20 MG TABLET PO SCH (09:06)
[2021-12-08] MEDS: ESCITALOPRAM OXALATE 10 MG TABLET PO SCH (09:06)
[2021-12-08] MEDS: PANTOPRAZOLE SODIUM 40 MG DR TABLET PO SCH (09:07)
[2021-12-08] MEDS: THIAMINE 100 MG/ML 2 ML VIAL IVP SCH (09:08)
[2021-12-08] MEDS: MORPHINE SULFATE 2 MG/ML SYRINGE IVP PRN ×2 (09:13→14:51)
[2021-12-08 11:29] LABS: BASOPHILS % (AUTO) 2.1 % (0.0-2.0); EOSINOPHILS % (AUTO) 1.8 % (1.0-6.0); HEMATOCRIT 49.1 % (41-53); HEMOGLOBIN 16.7 g/dL (13.5-17.5); LYMPHOCYTES # (AUTO) 1.1 K/uL (1.0-4.8); LYMPHOCYTES % (AUTO) 16.9 % (22.0-44.0); MEAN CORPUSCULAR HEMOGLOBIN 32.5 pg (26.0-34.0); MEAN CORPUSCULAR HGB CONC 33.9 G/dL (31.0-37.0); MEAN CORPUSCULAR VOLUME 96 fL (80-100); MONOCYTES # (AUTO) 0.5 K/uL (0.1-1.0); MONOCYTES % (AUTO) 7.5 % (2.0-9.0); NEUTROPHILS # (AUTO) 4.6 K/uL (1.8-7.7); NEUTROPHILS % (AUTO) 71.7 % (40.0-70.0); PLATELET COUNT (AUTO) 196 K/uL (150-450); RED BLOOD CELL COUNT(AUTO) 5.13 MIL/uL (4.50-5.90)
[2021-12-08] MEDS: ACETAMINOPHEN 325 MG TABLET PO PRN (14:51)
[2021-12-08 16:21] VITALS: BP 123/70
[2021-12-08 19:09] VITALS: BP 118/64
== END 2021-12-08 22:06 | DRG 603 ==
LOC: EMS 17:19 → 5S 18:59 → 6N 12-06 16:53
PROVIDERS: ADMIT Internal Medicine; ATTEND Internal Medicine
DX: L03.115 Cellulitis of right lower limb (principal); I10 Essential (primary) hypertension; L03.116 Cellulitis of left lower limb; F10.20 Alcohol dependence, uncomplicated; E66.9 Obesity, unspecified; I48.91 Unspecified atrial fibrillation; Z20.822 Contact with and (suspected) exposure to COVID-19; F25.1 Schizoaffective disorder, depressive type; Z79.02 Long term (current) use of antithrombotics/antiplatelets; Z91.19 Patient's noncompliance with other medical treatment and regimen; Z68.36 Body mass index [BMI] 36.0-36.9, adult
CPT/HCPCS: 36600; 80048; 80053; 80202; 82805; 83605; 83880; 84145; 85025; 85379; 85610; 85651; 85730; 86140; 87040; 93925; 93970; 97530; 99285; G0378; J0360; J1644; J2270; J2405; J3370; J3411; J7030; J7060; Q9967

== ENCOUNTER 2021-12-30 03:13 | Emergency (ER) | payer MEDICARE, OTHER ==
[~2021-12-30] VITALS: Ht 177.8 cm; Wt 127.3 kg
[~2021-12-30 03:13] MED LIST changes: +ATOR20TA65 PO; +CLOP75TA32 PO; +GABA-529 PO; +ICOS1CAP PO; +LISI10TA24 PO; -PANT-31 PO; +PANT20TA18 PO; -VANC125C6 IV
[2021-12-30 04:27] LABS: BASOPHILS % (AUTO) 0.5 % (0.0-2.0); EOSINOPHILS % (AUTO) 1.4 % (1.0-6.0); HEMATOCRIT 42.4 % (41-53); HEMOGLOBIN 14.6 g/dL (13.5-17.5); LYMPHOCYTES # (AUTO) 1.7 K/uL (1.0-4.8); LYMPHOCYTES % (AUTO) 20.8 % (22.0-44.0); MEAN CORPUSCULAR HEMOGLOBIN 32.4 pg (26.0-34.0); MEAN CORPUSCULAR HGB CONC 34.4 G/dL (31.0-37.0); MEAN CORPUSCULAR VOLUME 94 fL (80-100); MONOCYTES # (AUTO) 0.7 K/uL (0.1-1.0); MONOCYTES % (AUTO) 9.2 % (2.0-9.0); NEUTROPHILS # (AUTO) 5.5 K/uL (1.8-7.7); NEUTROPHILS % (AUTO) 68.1 % (40.0-70.0); PLATELET COUNT (AUTO) 197 K/uL (150-450); RED CELL DISTRIBUTION WIDTH 13.9 % (11.5-14.5)
[2021-12-30 04:46] LABS: ALANINE AMINOTRANSFERASE 66 U/L (12-78); ALBUMIN 3.9 g/dL (3.4-5.0); ALKALINE PHOSPHATASE 98 U/L (46-116); ANION GAP 11 mmol/L (8-16); ASPARTATE AMINOTRANSFERASE 82 U/L (15-37); BILIRUBIN,TOTAL 0.8 mg/dL (0.1-1.0); CALCIUM, TOTAL 8.3 mg/dL (8.8-10.5); CARBON DIOXIDE 27 mmol/L (22-29); CHLORIDE 99 mmol/L (98-107); CREATININE 0.72 mg/dL (0.60-1.30); GLOMERULAR FILTR. RATE CALC > 60 mL/min (>60); GLUCOSE,RANDOM 88 mg/dL (70-110); SODIUM SERUM 137 mmol/L (136-145); TOTAL PROTEIN, SERUM 7.3 g/dL (6.4-8.2); UREA NITROGEN, BLOOD 20 mg/dL (7-18)
[2021-12-30 04:52] VITALS: BP 143/62
[2021-12-30] MEDS ORDERED: POTASSIUM CHLORIDE 20 MEQ ER TABLET PO ONE (05:45)
[2021-12-30] MEDS ORDERED: LOPERAMIDE HCL 2 MG CAPSULE PO ONE (07:45)
== END 2021-12-30 07:58 | disposition home or self-care (01) ==
LOC: EMS 03:15
DX: R19.7 Diarrhea, unspecified (principal); E87.6 Hypokalemia; I48.91 Unspecified atrial fibrillation; F10.20 Alcohol dependence, uncomplicated; F32.A Depression, unspecified; E11.9 Type 2 diabetes mellitus without complications; I10 Essential (primary) hypertension; F17.210 Nicotine dependence, cigarettes, uncomplicated; Z98.890 Other specified postprocedural states; Z59.00 Homelessness unspecified
CPT/HCPCS: 80053; 85025; 99283